=== PATIENT | female | born 1940 | race Two or more races ===

== ENCOUNTER 2023-03-14 22:00 | Observation (INO) | payer OTHER, MEDICAID ==
[~2023-03-14] VITALS: Ht 152.4 cm; Wt 74.0 kg
[~2023-03-14 22:00] MED LIST: ACET-1079; ALPR0.5T; CITA-77; LEVO25CA2; NIFE90TA25; ROPI2TAB31; SIMV-270; TRIA1CAP5
[2023-03-14 22:41] LABS: Basophils # (auto) 0 10 ^3/uL (0-0.2); Basophils % (auto) 0.5 % (0.0-2.0); Eosinophils # (auto) 0.2 10 ^3/uL (0-0.8); Eosinophils % (auto) 2.1 % (0.0-7.0); Hematocrit 40.6 % (36.0-46.0); Hemoglobin 13.2 g/dL (12.2-16.2); Lymphocytes % (auto) 11.9 % (10.0-50.0); Mean Corpuscular Hemoglobin 30.3 pg (28.0-32.0); Mean Corpuscular Hgb Conc. 32.6 g/dL (32.0-36.0); Monocytes # (auto) 0.9 10 ^3/uL (0-1.3); Monocytes % (auto) 10.2 % (0.0-12.0); Neutrophils # (auto) 6.4 10 ^3/uL (1.6-8.6); Neutrophils % (auto) 75.3 % (37.0-80.0); Red Blood Cells 4.37 10^6/uL (4.0-5.20); Red Cell Distribution Width 13.6 % (11.8-14.3); White Blood Cell 8.5 10^3/uL (4.4-10.8)
[2023-03-14 22:58] LABS: INR 0.99 (0.9-1.15); Partial Thromboplastin Time 34.6 SEC (24.5-34.5); Prothrombin Time 10.4 sec (9.3-11.8)
[2023-03-14 22:59] LABS: Alanine Aminotransferase 15 U/L (7-40); Albumin 4.5 g/dL (3.2-4.8); Alkaline Phosphatase 92 U/L (46-116); Anion Gap 11 (5-15); Aspartate Aminotransferase 13 U/L (13-40); BUN/Creatinine Ratio 14.8 (10.0-20.0); Bilirubin, Total 0.2 mg/dL (0.2-1.0); Blood Urea Nitrogen 9 mg/dL (9-23); Calcium 9.5 mg/dL (8.5-10.1); Carbon Dioxide 22 mmol/L (20-30); Chloride 103 mmol/L (98-107); Glucose 126 mg/dL (74-106); Potassium 3.9 mmol/L (3.5-5.1); Sodium 136 mmol/L (136-145); Total Protein 6.7 g/dL (5.7-8.2)
[2023-03-14] MEDS ORDERED: ALBUTEROL SULF 2.5 MG/0.5ML(0.5%) NEB SOLN NEB ONE (23:45)
[2023-03-14] MEDS ORDERED: IPRATROPIUM BROM 0.5 MG/2.5ML INH SOL NEB ONE (23:45)
[2023-03-14] MEDS ORDERED: methylPREDNISolone SOD SUCC 125 MG/2 ML VL IV ONE (23:45)
[2023-03-15] VITALS (9 sets, daily range): BP systolic 116–136; BP diastolic 70–85; PULSE 80–148; RESP 16–22; TEMP 98–98.3; O2SAT 93–99
[2023-03-15] MEDS ORDERED: ALBUTEROL SULF 2.5 MG/0.5ML(0.5%) NEB SOLN NEB PRN (07:30)
[2023-03-15] MEDS ORDERED: ONDANSETRON HCL 4 MG/2 ML VIAL IV PRN (07:30)
[2023-03-15] MEDS ORDERED: ACETAMINOPHEN 325 MG TAB PO PRN (07:30)
[2023-03-15] MEDS ORDERED: NITROGLYCERIN 0.4 MG SL TAB SL PRN (08:15)
[2023-03-15] MEDS ORDERED: MORPHINE SULFATE INJ 2 MG/ml SYRG IV PRN (08:15)
[2023-03-15] MEDS: IPRATROPIUM BROM 0.5 MG/2.5ML INH SOL NEB PRN (08:18)
[2023-03-15] MEDS ORDERED: DIGO0.12 PO (08:30)
[2023-03-15] MEDS ORDERED: DILT-14 PO (08:30)
[2023-03-15] MEDS ORDERED: LEVALBUTEROL HCL 1.25 MG/3 ML NEB ONE (08:33)
[2023-03-15] MEDS: LEVOTHYROXINE SODIUM 50 MCG TAB PO SCH (09:48)
[2023-03-15] MEDS: DIGOXIN 0.125 MG TAB PO SCH (09:59)
[2023-03-15] MEDS: dilTIAZem 120MG ER CAP PO SCH (09:59)
[2023-03-15] MEDS: APIXABAN 2.5 MG TAB PO SCH ×2 (09:59→21:29)
[2023-03-15] MEDS ORDERED: DIGOXIN 0.125 MG TAB PO SCH (10:00)
[2023-03-15] MEDS ORDERED: dilTIAZem 120MG ER CAP PO SCH (10:00)
[2023-03-15] MEDS: methylPREDNISolone SOD SUCC 40 MG/ML VL IV SCH ×2 (10:00→21:28)
[2023-03-15] MEDS: SPIRONOLACTONE 25 MG TAB PO SCH (10:00)
[2023-03-15] MEDS: LEVALBUTEROL HCL 1.25 MG/3 ML NEB NEB PRN (10:22)
[2023-03-15] MEDS: ATORVASTATIN 20 MG TAB PO SCH (21:29)
[2023-03-15] MEDS: MONTELUKAST SODIUM 10 MG TAB PO SCH (21:29)
[2023-03-15] MEDS ORDERED: ATORVASTATIN 20 MG TAB PO SCH (22:00)
[2023-03-16] VITALS (11 sets, daily range): BP systolic 112–137; BP diastolic 61–79; PULSE 80–99; RESP 14–22; TEMP 97.4–98.3; O2SAT 91–98
[2023-03-16 05:08] LABS: Basophils # (auto) 0 10 ^3/uL (0-0.2); Basophils % (auto) 0.1 % (0.0-2.0); Eosinophils # (auto) 0 10 ^3/uL (0-0.8); Hematocrit 40.7 % (36.0-46.0); Hemoglobin 13.2 g/dL (12.2-16.2); Lymphocytes # (auto) 0.6 10 ^3/uL (0.4-5.4); Lymphocytes % (auto) 6.6 % (10.0-50.0); Mean Corpuscular Hemoglobin 30.6 pg (28.0-32.0); Mean Corpuscular Hgb Conc. 32.5 g/dL (32.0-36.0); Mean Corpuscular Volume 94.3 fL (80.0-100.0); Monocytes # (auto) 0.3 10 ^3/uL (0-1.3); Monocytes % (auto) 3.7 % (0.0-12.0); Neutrophils # (auto) 8.3 10 ^3/uL (1.6-8.6); Neutrophils % (auto) 89.6 % (37.0-80.0); Nucleated Red Blood Cells % 0.1 %; Red Blood Cells 4.31 10^6/uL (4.0-5.20); Red Cell Distribution Width 13.6 % (11.8-14.3); White Blood Cell 9.2 10^3/uL (4.4-10.8)
[2023-03-16 05:24] LABS: Alanine Aminotransferase 16 U/L (7-40); Albumin 4.1 g/dL (3.2-4.8); Alkaline Phosphatase 73 U/L (46-116); Anion Gap 9 (5-15); Aspartate Aminotransferase 13 U/L (13-40); BUN/Creatinine Ratio 43.1 (10.0-20.0); Blood Urea Nitrogen 22 mg/dL (9-23); Calcium 9.2 mg/dL (8.7-10.4); Carbon Dioxide 24 mmol/L (20-30); Chloride 106 mmol/L (98-107); Glucose 143 mg/dL (74-106); Potassium 4.1 mmol/L (3.5-5.1); Sodium 139 mmol/L (136-145)
[2023-03-16 05:25] LABS: Bilirubin, Total 0.2 mg/dL (0.2-1.0); Total Protein 5.8 g/dL (5.7-8.2)
[2023-03-16] MEDS: LEVOTHYROXINE SODIUM 50 MCG TAB PO SCH (06:15)
[2023-03-16] MEDS: methylPREDNISolone SOD SUCC 40 MG/ML VL IV SCH ×2 (10:45→21:22)
[2023-03-16] MEDS: SPIRONOLACTONE 25 MG TAB PO SCH (10:45)
[2023-03-16] MEDS: dilTIAZem 120MG ER CAP PO SCH (10:46)
[2023-03-16] MEDS: DIGOXIN 0.125 MG TAB PO SCH (10:46)
[2023-03-16] MEDS: APIXABAN 2.5 MG TAB PO SCH ×2 (10:46→21:23)
[2023-03-16] MEDS ORDERED: AZITHROMYCIN 250 MG TAB PO ONE (12:00)
[2023-03-16] MEDS ORDERED: FUROSEMIDE 20 MG/2 ML VIAL IV ONE (12:00)
[2023-03-16] MEDS ORDERED: DOXYCYCLINE 100 MG TAB/CAP PO ONE (12:00)
[2023-03-16] MEDS: IPRATROPIUM BROM 0.5 MG/2.5ML INH SOL NEB PRN (15:52)
[2023-03-16] MEDS ORDERED: PANTOPRAZOLE 40 MG TAB PO ONE (16:45)
[2023-03-16 20:26] LABS: Urine Bacteria FEW /hpf (None Seen); Urine Blood Negative /uL (Negative); Urine Clarity Clear (Clear); Urine Color Colorless (Yellow); Urine Protein, UAD Negative (Negative); Urine Specific Gravity 1.007 (1.001-1.035); Urine Urobilinogen Normal (Negative); Urine WBC <1 /hpf (0 - 5); Urine pH 6.5 (5.0-8.0)
[2023-03-16] MEDS: ATORVASTATIN 20 MG TAB PO SCH (21:23)
[2023-03-16] MEDS: MONTELUKAST SODIUM 10 MG TAB PO SCH (21:23)
[2023-03-16] MEDS: DOXYCYCLINE 100 MG TAB/CAP PO SCH (21:24)
[2023-03-17] VITALS (8 sets, daily range): BP systolic 116–120; BP diastolic 66–75; PULSE 85–106; RESP 16–22; TEMP 98.2–98.4; O2SAT 93–98
[2023-03-17] MEDS: methylPREDNISolone SOD SUCC 40 MG/ML VL IV SCH ×2 (05:36→13:56)
[2023-03-17] MEDS: LEVOTHYROXINE SODIUM 50 MCG TAB PO SCH (06:00)
[2023-03-17] MEDS: LEVALBUTEROL HCL 1.25 MG/3 ML NEB NEB PRN (08:56)
[2023-03-17] MEDS: IPRATROPIUM BROM 0.5 MG/2.5ML INH SOL NEB PRN (08:56)
[2023-03-17] MEDS: SPIRONOLACTONE 25 MG TAB PO SCH (09:32)
[2023-03-17] MEDS: dilTIAZem 120MG ER CAP PO SCH (09:32)
[2023-03-17] MEDS: APIXABAN 2.5 MG TAB PO SCH (09:32)
[2023-03-17] MEDS: DOXYCYCLINE 100 MG TAB/CAP PO SCH (09:32)
[2023-03-17] MEDS: DIGOXIN 0.125 MG TAB PO SCH (09:32)
[2023-03-17] MEDS ORDERED: AZITHROMYCIN 250 MG TAB PO SCH (10:00)
[2023-03-17] MEDS ORDERED: PANTOPRAZOLE 40 MG TAB PO SCH (10:00)
[2023-03-17] MEDS ORDERED: METO-281 PO (10:37)
[2023-03-17] MEDS ORDERED: LEVO175C2 PO (15:22)
[2023-03-17] MEDS ORDERED: DOX100T PO (15:22)
[2023-03-17] MEDS ORDERED: LEVA1.2518 NEB (15:22)
[2023-03-17] MEDS ORDERED: IPR002IS NEB (15:22)
[2023-03-17] MEDS ORDERED: PRED20TA2 PO (15:23)
== END 2023-03-17 16:40 | disposition home or self-care (01) ==
LOC: EDUNIT# 22:00 → ER 22:00 → EDBD 22:00 → TELE 03-15 08:06 → TELE-WESTW 03-15 16:12
PROVIDERS: ADMIT Nurse Practitioner Acute Care; ATTEND Internal Medicine
DX: J96.21 Acute and chronic respiratory failure with hypoxia (principal); J44.1 Chronic obstructive pulmonary disease with (acute) exacerbation; I11.0 Hypertensive heart disease with heart failure; I50.32 Chronic diastolic (congestive) heart failure; I48.91 Unspecified atrial fibrillation; E03.9 Hypothyroidism, unspecified; R60.0 Localized edema; I25.10 Atherosclerotic heart disease of native coronary artery without angina pectoris; I08.0 Rheumatic disorders of both mitral and aortic valves; F32.A Depression, unspecified; E78.5 Hyperlipidemia, unspecified; Z95.1 Presence of aortocoronary bypass graft; Z88.1 Allergy status to other antibiotic agents; Z88.0 Allergy status to penicillin; Z88.5 Allergy status to narcotic agent
CPT/HCPCS: 36415; 71045; 71250; 80053; 80162; 81001; 83036; 83880; 84443; 84484; 85025; 85610; 85730; 93306; 94640; 96374; 96375; 96376; 99285; G0378; J1940; J2920; J7612; J7644; 93005

== ENCOUNTER → 2024-03-22 | Outpatient (CLI) | payer OTHER, MEDICAID ==
[~2024-03-22] MED LIST changes: +DIGO0.12 PO; +DILT-14 PO; +DOX100T PO; +IPR002IS NEB; +LEVA1.2518 NEB; +LEVO175C2 PO; +METO-281 PO; +PRED20TA2 PO
[2024-03-22 12:26] LABS: Base Excess -2.2 mmol/L (-2.0-3.0)
== END | disposition home or self-care (01) ==
LOC: RT 11:10
PROVIDERS: ATTEND Internal Medicine
DX: J96.11 Chronic respiratory failure with hypoxia (principal); J44.9 Chronic obstructive pulmonary disease, unspecified; Z99.81 Dependence on supplemental oxygen
CPT/HCPCS: 36600; 82805

== ENCOUNTER 2024-03-26 15:06 | Inpatient (IN) | payer OTHER, MEDICAID ==
[~2024-03-26] VITALS: Ht 152.4 cm; Wt 67.9 kg
[2024-03-26 15:34] LABS: Urine Bacteria None Seen /hpf (None Seen)
--- NOTE | 2024-03-26 15:35 | ED.PDOC ---
HPI Comments 84 year old female ROSA presents to the ED with chief complaint of chest pain and shortness a breath. Patient reports that she has been experiencing chest pain since this morning. Patient relays that she had taken 2 doses of Nitroglycerine along with a breathing treatment with some relief in her pain noted. EMS states they provided the patient one dose of Nitroglycerine on route to the ED and her pain had went from a 4/10 to a 2/10. Patient has history of UT, COPD, and CABG. Patient denies any SOB, dizziness, headache, N/V, or numbness/weakness. Chief Complaint: Chest Pain Time Seen by MD: 15:31 Reviewed Notes: Nurses Notes, Program Dir Notes, Medications, Allergies Allergies: Coded Allergies: Codeine (Verified Allergy, Unknown, 03/15/23) Erythromycin (Verified Allergy, Unknown, 03/15/23) Penicillins (Verified Allergy, Unknown, 03/15/23) Home Meds Active Scripts Prednisone (Prednisone) 20 Mg Tab, 40 MG PO QAM for 5 Days, #10 MG Prov:RAHAT MOOER MD 03/17/23 Ipratropium [place] (Ipratropium [place]) 0.02 % Nayeli, 0.5 MG NEB Q6HPRN PRN for 30 Days, #90 ML Prov:RAHAT MOORE MD 03/17/23 Levothyroxine Sodium (Levothyroxine Sodium) 175 Mcg Cap, 175 MCG PO QAM for 30 Days, #30 CAP Prov:RAHAT MOORE MD 03/17/23 Doxycycline Monohydrate (Doxycycline Monohydrate) 100 Mg Tab, 100 MG PO Q12HR for 5 Days, #10 TAB Prov:RAHAT MOORE MD 03/17/23 Levalbuterol HCl (Levalbuterol HCl) 1.25 Mg/3 Ml Neb, 1.25 MG NEB Q6HR PRN for 30 Days, #30 INH Prov:RAHAT MOORE MD 03/17/23 Reported Medications Metoclopramide Hcl (Reglan) 10 Mg Tab, 10 MG PO BIDAC, TAB 03/17/23 Digoxin (Digoxin) 125 Mcg Tab, 1 TAB PO DAILY 03/15/23 Diltiazem HCl Coated Beads (Diltiazem HCl ER) 120 Mg Cap, 1 CAP PO 03/15/23 Acetaminophen (Tylenol) 325 Mg Tb 09/24/11 Alprazolam (Xanax) 0.5 Mg Tb 09/24/11 Ropinirole Hydrochloride (ROPINIROLE ER) 2 Mg Tab 09/24/11 Citalopram Hydrobromide (Citalopram Hydrobromide) 20 Mg Tab 09/24/11 Simvastatin (Zocor) 20 Mg Tab 09/24/11 Levothyroxine Sodium (Tirosint) 25 Mcg Cap 09/24/11 Triamterene (Dyrenium) 50 Mg Cap 09/24/11 Nifedipine (Adalat Cc) 90 Mg Tab 09/24/11 Information Source: Patient, Emergency Med Personnel Mode of Arrival: EMS Severity: Moderate Timing: Hours Duration: Since onset Prehospital treatment: Breathing Tx, NTG Location: Chest (L) Radiation: No Radiation Quality: Tightness Onset: At Rest Cardiac Risk Factors: Hyperlipidemia, HTN PE Risk Factors: None History of: Similar pain in past, UT Past Medical History PAST MEDICAL HISTORY: CAD, CHF, COPD, Depression, High Lipids, HTN, [place], Thyroid Surgical History: CABG 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 History Family History Family History: Reviewed,noncontributory to illness, Unknown Social History Smoker: Non-Smoker Alcohol: Denies ETOH Use Drugs: Denies Drug Use Lives In: Home Constitutional: denies: chills, diaphoresis, fatigue, fever, malaise, sweats, weakness, others EENTM: denies: blurred vision, double vision, ear bleeding, ear discharge, ear drainage, ear pain, ear ringing, eye pain, eye redness, hearing loss, mouth pain, mouth swelling, nasal discharge, nose bleeding, nose congestion, nose pain, photophobia, tearing, throat pain, throat swelling, voice changes, others Respiratory: reports: shortness of breath; denies: cough, hemoptysis, orthopnea, SOB at rest, SOB with excertion, stridor, wheezing, others Cardiovascular: reports: chest pain; denies: dizzy spells, diaphoresis, Dyspnea on exertion, edema, irregular heart beat, left arm pain, lightheadedness, palpitations, PND, syncope, others Gastrointestinal: denies: abdomen distended, abdominal pain, blood streaked bowels, constipated, diarrhea, dysphagia, difficulty swallowing, hematemesis, melena, nausea, poor appetite, poor fluid intake, rectal bleeding, rectal pain, vomiting, others Genitourinary: denies: abnormal vagina bleeding, burning, dyspareunia, dysuria, flank pain, frequency, hematuria, incontinence, pain, , vagina discharge, urgency, others Neurological: denies: dizziness, fainting, headache, left sided numbness, left sided weakness, numbness, paresthesia, pre-existing deficit, right sided numbness, right sided weakness, seizure, speech problems, tingling, tremors, weakness, others Musculoskeletal: denies: back pain, gout, joint pain, joint swelling, muscle pain, muscle stiffness, neck pain, others Integumetry: denies: bruises, change in color, change in hair/nails, dryness, laceration, lesions, lumps, rash, wounds, others Allergic/Immunocompromised: denies: Difficulty Healing, Frequent Infections, Hives, Itching, others Hematologic/Lymphatic: denies: anemia, blood clots, easy bleeding, easy bruising, swollen glands, others Endocrine: denies: excessive hunger, excessive sweating, excessive thirst, excessive urination, flushing, intolerance to cold, intolerance to heat, unexplained weight gain, unexplained weight loss, others Psychiatric: denies: anxiety, bipolar disorder, depression, hopeless, panic disorder, schizophrenia, sleepless, suicidal, others All Other Systems: Reviewed and Negative Physical Exam General Appearance: Moderate Distress ([id number] distress due to chest pain concerns. Patient states her chest pain had improved in route status post EMS nitroglycerin dispensing.), Normal HEENT: Normal ENT Inspection, Pharynx Normal, TMs Normal Neck: Full Range of Motion, Non-Tender, Normal, Normal Inspection Respiratory: Chest Non-Tender, Lungs Clear, No Accessory Muscle Use, No Respiratory Distress, Normal Breath Sounds Cardiovascular: No Edema, No JVD, No Murmur, No Gallop, Normal Peripheral Pulses, Tachycardia Breast Exam: Deferred Gastrointestinal: No Organomegaly, Non Tender, No Pulsatile Mass, Normal Bowel Sounds, Soft Genitalia: Deferred Pelvic: Deferred Rectal: Deferred Extremities: No calf tenderness, Normal capillary refill, Non-tender, No pedal edema Neurologic: Alert, Normal Affect, Normal Mood, No Sensory Deficits Cerebellar Function: NOT DONE Reflexes: NOT DONE Skin: Dry, Normal Color, Warm Lymphatic: No Adenopathy Was a procedure done? Was a procedure done?: No CP Differential Dx Differential Diagnosis: A-fib, A-Flutter, Anxiety / Panic Attack, Atrial Dysrhythmia, AV Block 1st Degree, AV Block 2nd Degree, Heart Failure, UT, Pulmonary Embolus Differential Diagnosis: CHF Differential Diagnosis: Angina X-Ray, Labs, Meds, VS Vital Signs Date Time Temp Pulse Resp B/P (MAP) Pulse Ox O2 Delivery O2 Flow Rate FiO2 03/26/24 18:28 18 97 Simple Mask* 6 50 03/26/24 17:15 101 23 97 Simple Mask* 6 50 03/26/24 17:15 97.9 101 23 121/73 (89) 97 97.9 03/26/24 16:59 113 117/76 03/26/24 16:26 114 03/26/24 15:28 98.3 120 20 122/66 (84) 92 03/26/24 15:17 117 03/26/24 15:11 121 Lab Test 03/26/24 16:34 03/26/24 15:24 03/26/24 00:00 Range/Units Lactic Acid Level 0.8 0.4-2.0 mmol/L Magnesium Level 1.8 1.6-2.6 mg/dL Troponin I High Sensitivity < 3 L 3 L </=34 ng/L White Blood Count 5.8 4.4-10.8 10^3/uL Red Blood Count 4.59 4.0-5.20 10^6/uL Hemoglobin 14.2 12.2-16.2 g/dL Hematocrit 42.5 36.0-46.0 % Mean Corpuscular Volume 92.5 80.0-100.0 fL Mean Corpuscular Hemoglobin 31.0 28.0-32.0 pg Mean Corpuscular Hemoglobin Concent 33.5 32.0-36.0 g/dL Red Cell Distribution Width 13.5 11.8-14.3 % Platelet Count 225 140-450 10^3/uL Mean Platelet Volume 7.1 6.9-10.8 fL Neutrophils (%) (Auto) 81.1 H 37.0-80.0 % Lymphocytes (%) (Auto) 6.5 L 10.0-50.0 % Monocytes (%) (Auto) 11.3 0.0-12.0 % Eosinophils (%) (Auto) 0.3 0.0-7.0 % Basophils (%) (Auto) 0.8 0.0-2.0 % Neutrophils # (Auto) 4.7 1.6-8.6 10 ^3/uL Lymphocytes # (Auto) 0.4 0.4-5.4 10 ^3/uL Monocytes # (Auto) 0.7 0-1.3 10 ^3/uL Eosinophils # (Auto) 0 0-0.8 10 ^3/uL Basophils # (Auto) 0 0-0.2 10 ^3/uL Nucleated Red Blood Cells 0.3 % Sodium Level 135 L 136-145 mmol/L Potassium Level 4.2 3.5-5.1 mmol/L Chloride Level 103 98-107 mmol/L Carbon Dioxide Level 24 20-31 mmol/L Anion Gap 8 5-15 Blood Urea Nitrogen 8 L 9-23 mg/dL Creatinine 0.81 0.550-1.02 mg/dL Glomerular Filtration Rate Calc 72 >90 mL/min BUN/Creatinine Ratio 9.9 L 10.0-20.0 Serum Glucose 109 H 74-106 mg/dL Calcium Level 10.5 H 8.7-10.4 mg/dL Total Bilirubin 0.3 0.2-1.0 mg/dL Aspartate Amino Transferase (AST) 16 13-40 U/L Alanine Aminotransferase (ALT) 16 7-40 U/L Alkaline Phosphatase 96 46-116 U/L B-Type Natriuretic Peptide 45.86 0-100 pg/mL Total Protein 7.0 5.7-8.2 g/dL Albumin 4.7 3.2-4.8 g/dL Lipase 41 12-53 U/L Urine Color Dark-yellow Yellow Urine Clarity Clear Clear Urine pH 6.0 5.0-9.0 Urine Specific [place] 1.019 1.001-1.035 Urine Protein Negative Negative Urine Ketones 1+ H Negative Urine Blood Negative Negative /uL Urine Nitrite Negative Negative Urine Bilirubin Negative Negative Urine Urobilinogen Normal Negative mg/dL Urine Leukocyte Esterase Negative Negative /uL Urine RBC 4 0 - 4 /hpf Urine WBC <1 0 - 5 /hpf Urine Squamous Epithelial Cells Few <5 /hpf Urine Bacteria None seen None Seen /hpf Urine Glucose Normal Normal mg/dL Current Medications Medications (Trade) Dose Ordered Sig/[place] Route Start Time Stop Time Status Last Admin Ipratropium [place] (Atrovent Medneb) 0.5 mg ONCE ONCE NEB 03/26/24 17:30 03/26/24 17:31 DC 03/26/24 18:28 Dexamethasone Sodium Phosphate (Decadron Injection) 10 mg ONCE ONCE IV 03/26/24 17:45 03/26/24 17:46 DC 03/26/24 18:19 Levalbuterol HCl (Xopenex Medneb) 0.625 mg ONCE ONCE NEB 03/26/24 18:30 03/26/24 18:31 DC 03/26/24 18:28 X-Ray, Labs, Meds, VS Comment All studies performed the ED today were reviewed by me personally. Patient's initial EKG revealed a sinus tachycardia with a rate of 117. Atrial premature complexes noted as well as an old anterolateral infarct. IN interval was 150 and QT intervals 343. Some unusual movement noted in V4 and AVR. Cardiology practitioner Zoya was available and I reviewed EKG studies with her. We both agreed the patient will be admitted and receive a cardiac consultation tomorrow. Serum laboratories were relatively unremarkable for any acute process. Chest x-ray was unremarkable for any consolidation or signs of pulmonary involvement. Time of 1ST Reevaluation: 18:51 Reevaluation 1ST: Improved Consultation: PCP, Cardiology Patient Education/Counseling: Diagnosis, Treatment Family Education/Counseling: Diagnosis, Treatment, No Family Present Departure 1 Departure Time of Disposition: 18:52 Impression: Primary Impression: Acute coronary syndrome Additional Impressions: Hypertensive urgency COPD exacerbation Disposition: ADMITTED INPATIENT Condition: Stable Discharged With: Self Critical Care Note Critical Care Time?: No Stability Stability form required: No Heart Score Heart Score: Heart Score Response (Comments) Value History Highly Suspicious 2 EKG Normal 0 Age >65 2 Risk Factors >3 or Hx ASHD 2 Troponin Normal limit 0 Total 6 I personally scribed for JUNIOR NICOLAS PAC ([email or web address]) on 03/26/24 at 15:35. Electronically submitted by Emory Lincoln ([email or web address]). JUNIOR NICOLAS PAC Mar 26, 2024 15:35
[2024-03-26 15:46] LABS: Basophils # (auto) 0 10 ^3/uL (0-0.2); Basophils % (auto) 0.8 % (0.0-2.0); Eosinophils # (auto) 0 10 ^3/uL (0-0.8); Eosinophils % (auto) 0.3 % (0.0-7.0); Hematocrit 42.5 % (36.0-46.0); Hemoglobin 14.2 g/dL (12.2-16.2); Lymphocytes # (auto) 0.4 10 ^3/uL (0.4-5.4); Lymphocytes % (auto) 6.5 % (10.0-50.0); Mean Corpuscular Hgb Conc. 33.5 g/dL (32.0-36.0); Mean Corpuscular Volume 92.5 fL (80.0-100.0); Monocytes # (auto) 0.7 10 ^3/uL (0-1.3); Monocytes % (auto) 11.3 % (0.0-12.0); Neutrophils # (auto) 4.7 10 ^3/uL (1.6-8.6); Neutrophils % (auto) 81.1 % (37.0-80.0); Nucleated Red Blood Cells % 0.3 %; Platelet Count (auto) 225 10^3/uL (140-450); Red Blood Cells 4.59 10^6/uL (4.0-5.20); Red Cell Distribution Width 13.5 % (11.8-14.3); White Blood Cell 5.8 10^3/uL (4.4-10.8)
--- NOTE | 2024-03-26 15:48 | DVH ---
CHEST RADIOGRAPH Indication: CP Technique: Single frontal view of the chest was obtained Comparison: CT chest 03/16/2023 FINDINGS: Lines and Tubes: None Lungs: No focal consolidation. Hyperinflation of the lungs. Eventration of the right hemidiaphragm. Linear densities of the bilateral lower lung zones and right mid lung zone. Midline sternotomy wires are noted. Pleura: No effusion. No pneumothorax. Cardiomediastinal contours: Unremarkable Bones: No acute osseous abnormality. IMPRESSION: Eventration of the right hemidiaphragm with bilateral lower lung zone and right mid lung zone linear atelectasis /scarring.
[2024-03-26 15:55] LABS: Urine Blood Negative /uL (Negative); Urine Clarity Clear (Clear); Urine Color Dark-Yellow (Yellow); Urine Protein, UAD Negative (Negative); Urine Specific Gravity 1.019 (1.001-1.035); Urine Squamous Epithelial Cell FEW /hpf (<5); Urine Urobilinogen Normal (Negative); Urine WBC <1 /hpf (0 - 5)
[2024-03-26 16:00] LABS: Alanine Aminotransferase 16 U/L (7-40); Albumin 4.7 g/dL (3.2-4.8); Alkaline Phosphatase 96 U/L (46-116); Anion Gap 8 (5-15); Aspartate Aminotransferase 16 U/L (13-40); BUN/Creatinine Ratio 9.9 (10.0-20.0); Carbon Dioxide 24 mmol/L (20-31); Chloride 103 mmol/L (98-107); Lipase 41 U/L (12-53); Potassium 4.2 mmol/L (3.5-5.1)
[2024-03-26 16:04] LABS: Bilirubin, Total 0.3 mg/dL (0.2-1.0); Blood Urea Nitrogen 8 mg/dL (9-23); Calcium 10.5 mg/dL (8.7-10.4); Glucose 109 mg/dL (74-106); Sodium 135 mmol/L (136-145)
[2024-03-26] MEDS: METOPROLOL TARTRATE 1MG/1ML-5ML VIAL IV ONE (16:59)
[2024-03-26 17:15] VITALS: PULSE 101; RESP 23; O2SAT 97
[2024-03-26] MEDS ORDERED: DexAMETHasone INJECTION 10 MG in D5W 5% 50 ML IV ONE (17:30)
[2024-03-26] MEDS ORDERED: ALBUTEROL SULF 2.5 MG/0.5ML(0.5%) NEB SOLN NEB ONE (17:30)
[2024-03-26] MEDS ORDERED: DexAMETHasone SOD PHOS 10MG/1ML VIAL INJ IV ONE (17:45)
[2024-03-26] MEDS: DexAMETHasone SOD PHOS 10MG/1ML VIAL INJ IV ONE (18:19)
[2024-03-26] MEDS: LEVALBUTEROL HCL 1.25 MG/3 ML NEB NEB ONE (18:28)
[2024-03-26] MEDS: IPRATROPIUM BROM 0.5 MG/2.5ML INH SOL NEB ONE (18:28)
[2024-03-26] MEDS: LEVALBUTEROL HCL 1.25 MG/3 ML NEB ONE (18:31)
--- NOTE | 2024-03-26 18:49 | ECG ---
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
--- NOTE | 2024-03-26 18:50 | ECG ---
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
--- NOTE | 2024-03-26 18:50 | ECG ---
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
[2024-03-26 19:35] VITALS: PULSE 106; RESP 18; O2SAT 97
[2024-03-26] MEDS ORDERED: DOCUSATE SOD 100 MG CAP PO PRN (20:45)
[2024-03-26] MEDS ORDERED: MORPHINE SULFATE INJ 2 MG/ml SYRG IV PRN (20:45)
[2024-03-26] MEDS ORDERED: NITROGLYCERIN 0.4 MG SL TAB SL PRN (20:45)
[2024-03-26] MEDS ORDERED: ONDANSETRON HCL 4 MG/2 ML VIAL IV PRN (20:45)
--- NOTE | 2024-03-26 20:55 | DVHHP2 ---
History of Present Illness Reason for Visit: COPD with acute exacerbation History of Present Illness The patient is a 84-year-old female with multiple past medical history including COPD, CHF, hypertension, [place], and hyperlipidemia who presented to [facility] ED with complaint of shortness of breaths. Patient reports symptoms progressively get worse with chest pain, increased work of breathing, getting worse that prompted this visit. Patient was seen and evaluated in the ED, laboratory data shows WBC 5.8, platelets 225, sodium 135, potassium 4.2, BUN 8, creatinine 0.81, GFR 72, glucose 109, calcium 10.5, BNP 45.56, troponin 3, blood pressure 121/73, heart rate 98, temperature 97.9 F, O2 saturation 97% on simple mask. Chest x-ray revealing eventration of the right hemidiaphragm with bilateral lower lung zone and right mid lung zone linear atelectasis/scarring. Please see medication orders section in the computer. On my assessment, patient denies chest pain, no headache, no dizziness, no diaphoresis, no diarrhea, no nausea, no vomiting, no fever, no chills. Patient was admitted for further evaluation and medical management. Past Medical History CAD, CHF, COPD, Depression, High Lipids, HTN, [place], Thyroid Past Surgical History CABG Family History Reviewed, noncontributory to the management of this case. Past Social History The patient lives at home, denies smoking, alcohol or illicit drugs abuse. Review of Systems Constitutional: Yes: Weakness; No: Fever, Chills, Sweats, Malaise, Other Eyes: No: Pain, Vision change, Conjunctivae inflammation, Eyelid inflammation, Other, Redness ENT: No: Ear pain, Ear discharge, Nose pain, Nose discharge, Nose congestion, Mouth pain, Mouth swelling, Throat pain, Throat swelling, Other Respiratory: Shortness of breath, SOB with excertion; No: Cough, Dry, Wheezing, Hemoptysis, Pleuritic Pain, Sputum, Wheezing, Other Cardiovascular: Chest Pain; No: Palpitations, Orthopnea, Paroxysmal Noc. Dyspnea, Edema, Lt Headedness, Other Gastrointestinal: No: Nausea, Vomiting, Abdominal Pain, Diarrhea, Constipation, Melena, Hematochezia, Other Genitourinary: No Dysuria, No Frequency, No Incontinence, No Hematuria, No Retention, No Other Musculoskeletal: No: other, neck pain, shoulder pain, arm pain, back pain, hand pain, leg pain, foot pain Skin: No: Rash, Lesions, Jaundice, Bruising, Other Neurological: No: Weakness, Numbness, Incoordination, Change in speech, Confusion, Seizures, Other Allergies: Coded Allergies: Azithromycin (Verified Allergy, Unknown, 03/26/24) Codeine (Verified Allergy, Unknown, 03/15/23) Erythromycin (Verified Allergy, Unknown, 03/15/23) Penicillins (Verified Allergy, Unknown, 03/15/23) Medications Current Medications Medications Dose Ordered Sig/[place] Route Start Time Stop Time Status Last Admin Dose Admin Aspirin 81 mg DAILY PO 03/27/24 10:00 UNV Levalbuterol HCl 0.625 mg Q6HR NEB 03/27/24 00:00 UNV Ipratropium [place] 0.5 mg Q4HPRN PRN NEB 03/26/24 20:45 UNV Atorvastatin Calcium 20 mg HS PO 03/26/24 22:00 UNV Digoxin 0.125 mg DAILY PO 03/27/24 10:00 UNV Famotidine 20 mg Q12HR IV 03/26/24 22:00 UNV Nitroglycerin 0.4 mg Q5MINP PRN SL 03/26/24 20:45 UNV Morphine Sulfate 2 mg Q30M PRN IV 03/26/24 20:45 UNV Exam Vital Signs Vital Signs Date Time Temp Pulse Resp B/P (MAP) Pulse Ox O2 Delivery O2 Flow Rate FiO2 03/26/24 20:00 98 03/26/24 18:28 18 97 Simple Mask* 6 50 03/26/24 17:15 97.9 121/73 (89) 97.9 General Appearance: Alert, Oriented X3, Cooperative, No acute distress HEENT: Atraumatic, PERRLA, EOMI, Mucous membr. moist/pink Respiratory: Normal air movement, Other (Diminished breath sounds) Cardiovascular: Regular rate, Normal S1, Normal S2, No murmurs Abdominal: Normal bowel sounds, Soft, No tenderness, No hepatospenomegaly, No masses Extremities: No clubbing, No cyanosis, No edema, Normal pulses, No tenderness/swelling Skin: No rashes, No breakdown, No significant lesion Neuro: Normal speech, Normal tone, Sensation intact, Cranial nerves 3-12 NL, Reflexes 2+, Other (Generalized weakness) Psych/Mental Status: Mental status NL, Mood NL Labs/Xrays Labs Test 03/26/24 16:34 03/26/24 15:24 03/26/24 00:00 Range/Units Lactic Acid Level 0.8 0.4-2.0 mmol/L Magnesium Level 1.8 1.6-2.6 mg/dL Troponin I High Sensitivity < 3 L </=34 ng/L White Blood Count 5.8 4.4-10.8 10^3/uL Red Blood Count 4.59 4.0-5.20 10^6/uL Hemoglobin 14.2 12.2-16.2 g/dL Hematocrit 42.5 36.0-46.0 % Mean Corpuscular Volume 92.5 80.0-100.0 fL Mean Corpuscular Hemoglobin 31.0 28.0-32.0 pg Mean Corpuscular Hemoglobin Concent 33.5 32.0-36.0 g/dL Red Cell Distribution Width 13.5 11.8-14.3 % Platelet Count 225 140-450 10^3/uL Mean Platelet Volume 7.1 6.9-10.8 fL Neutrophils (%) (Auto) 81.1 H 37.0-80.0 % Lymphocytes (%) (Auto) 6.5 L 10.0-50.0 % Monocytes (%) (Auto) 11.3 0.0-12.0 % Eosinophils (%) (Auto) 0.3 0.0-7.0 % Basophils (%) (Auto) 0.8 0.0-2.0 % Neutrophils # (Auto) 4.7 1.6-8.6 10 ^3/uL Lymphocytes # (Auto) 0.4 0.4-5.4 10 ^3/uL Monocytes # (Auto) 0.7 0-1.3 10 ^3/uL Eosinophils # (Auto) 0 0-0.8 10 ^3/uL Basophils # (Auto) 0 0-0.2 10 ^3/uL Nucleated Red Blood Cells 0.3 % Sodium Level 135 L 136-145 mmol/L Potassium Level 4.2 3.5-5.1 mmol/L Chloride Level 103 98-107 mmol/L Carbon Dioxide Level 24 20-31 mmol/L Anion Gap 8 5-15 Blood Urea Nitrogen 8 L 9-23 mg/dL Creatinine 0.81 0.550-1.02 mg/dL Glomerular Filtration Rate Calc 72 >90 mL/min BUN/Creatinine Ratio 9.9 L 10.0-20.0 Serum Glucose 109 H 74-106 mg/dL Calcium Level 10.5 H 8.7-10.4 mg/dL Total Bilirubin 0.3 0.2-1.0 mg/dL Aspartate Amino Transferase (AST) 16 13-40 U/L Alanine Aminotransferase (ALT) 16 7-40 U/L Alkaline Phosphatase 96 46-116 U/L B-Type Natriuretic Peptide 45.86 0-100 pg/mL Total Protein 7.0 5.7-8.2 g/dL Albumin 4.7 3.2-4.8 g/dL Lipase 41 12-53 U/L Urine Color Dark-yellow Yellow Urine Clarity Clear Clear Urine pH 6.0 5.0-9.0 Urine Specific [place] 1.019 1.001-1.035 Urine Protein Negative Negative Urine Ketones 1+ H Negative Urine Blood Negative Negative /uL Urine Nitrite Negative Negative Urine Bilirubin Negative Negative Urine Urobilinogen Normal Negative mg/dL Urine Leukocyte Esterase Negative Negative /uL Urine RBC 4 0 - 4 /hpf Urine WBC <1 0 - 5 /hpf Urine Squamous Epithelial Cells Few <5 /hpf Urine Bacteria None seen None Seen /hpf Urine Glucose Normal Normal mg/dL PATIENT: LIANE COLORADO ACCT: [id number] UNIT: [id number] : 1940 LOC: ER ROOM / BED: / AGE / SEX: 84 / F ADM STATUS: REG ER SERVICE 1515 ORDERING PHYSICIAN: JUNIOR NICOLAS PAC PROCEDURE(s): CXRP - CHEST PORTABLE REASON: CP ORDER NUMBER(s): [id number], ACCESSION NUMBER(s): [id number] CHEST RADIOGRAPH Indication: CP Technique: Single frontal view of the chest was obtained Comparison: CT chest 03/16/2023 FINDINGS: Lines and Tubes: None Lungs: No focal consolidation. Hyperinflation of the lungs. Eventration of the right hemidiaphragm. Linear densities of the bilateral lower lung zones and right mid lung zone. Midline sternotomy wires are noted. Pleura: No effusion. No pneumothorax. Cardiomediastinal contours: Unremarkable Bones: No acute osseous abnormality. IMPRESSION: Eventration of the right hemidiaphragm with bilateral lower lung zone and right mid lung zone linear atelectasis/scarring. Assessment/Plan Assessment/Plan Acute coronary syndrome Tachycardia COPD with acute exacerbation Generalized weakness Plan 1. Admit to telemetry unit 2. Breathing treatment 3. Pain control management 4. Management of fluids and electrolytes 5. Consultation for pulmonology 6. Diagnostic tests chest x-ray 7. DVT prophylaxis-on aspirin 8. Repeat labs CBC, CMP in a.m. 9. Continue with current medical management 10. Treatment plan discussed with patient and RN. Patient verbalized understanding. Plan discussed with: Patient, Other (RN) My Orders Orders - CONSTANTIN EASTON DNP Procedure Category Date Status Time Aspirin Tablet PHA 03/27/24 Logged 10:00 Levalbuterol Hcl PHA 03/27/24 Logged (Xopenex Medneb) 00:00 Ipratropium Medneb PHA 03/26/24 Logged (Atrovent Medneb) 20:45 Atorvastatin (Lipitor) PHA 03/26/24 Logged 22:00 Digoxin Tablet PHA 03/27/24 Transmitted (Lanoxin Tablet) 10:00 Famotidine Injection PHA 03/26/24 Transmitted (Pepcid Injection) 22:00 Methylprednisolone PHA 03/26/24 Transmitted Sod Succ (Solu Medrol 20:45 Methylprednisolone PHA 03/26/24 Transmitted Sod Succ (Solu Medrol 22:00 *Consult CONS 03/26/24 Transmitted / 20:41 Levothyroxine Tablet PHA 03/27/24 Transmitted (Synthroid Tablet) 06:00 Admit ADMIT 03/26/24 Transmitted 20:41 Allergies MADALYN 03/26/24 In Process 20:41 Code Status CODE 03/26/24 Transmitted 20:41 0.9% Ns 1000 Ml PHA 03/26/24 Transmitted 20:45 Oxygen Per Hour RT 03/26/24 Transmitted 20:41 Ondansetron Hcl PHA 03/26/24 Transmitted (Zofran) 20:45 Docusate Sodium PHA 03/26/24 Transmitted Capsule (Colace 20:45 Fall Risk Precautions MADALYN 03/26/[address] 20:41 Complete Blood Count LAB 03/27/24 Verified 04:00 Comprehensive LAB 03/27/24 Verified Metabolic Panel 04:00 Cardiac DIET 03/27/24 Transmitted Diet-2gna,Lofat,Lochol Breakfast Condition: Serious MADALYN 03/26/24 In Process 20:41 Acetaminophen Tablet PHA 03/26/24 Transmitted (Tylenol Tablet) 20:45 Sequential MADALYN 03/26/24 In Process Compression Device Nitroglycerin PHA 03/26/24 Transmitted Sublingual (Ntrostat 20:45 Morphine Sulfate PHA 03/26/24 Transmitted Injection 20:45 Notify Md Of Changes [facility] 03/26/24 In Process From Base 20:41 Full Stack Developer For [facility] 03/26/24 In Process 24 Hours 20:41 Emergency Dysrhythmia [facility] 03/26/24 In Process Protocol 20:41 Rhythm Strips Once [facility] 03/26/24 In Process Every Shift 20:41 Oxygen By Nasal RT 03/26/24 Transmitted Cannula 20:41 Problem List: (1) Acute coronary syndrome (2) Tachycardia (3) COPD with acute exacerbation (4) Generalized weakness Date of Service: Mar 26, 2024 Billing Provider: CONSTANTIN EASTON DNP Common Visit Codes: [id number] INP/OBS CARE (HIGH) CONSTANTIN EASTON DNP Mar 26, 2024 20:55
[2024-03-26 21:09] VITALS: BP 110/74; PULSE 106; RESP 18; TEMP 97.7; O2SAT 98
[2024-03-26] MEDS: methylPREDNISolone SOD SUCC 40 MG/ML VL IV SCH (22:00)
[2024-03-26] MEDS: ATORVASTATIN 20 MG TAB PO SCH (22:11)
[2024-03-26] MEDS: SODIUM CHLORIDE 0.9% 1,000 ML IV SCH (22:11)
[2024-03-26] MEDS: methylPREDNISolone SOD SUCC 125 MG/2 ML VL IV ONE (22:11)
--- NOTE | 2024-03-26 23:26 | DVHINCON2 ---
Date of service: Mar 26, 2024 Referring Physician Brigido Shah NP Reason for Consultation Acute hypoxic respiratory failure History of Present Illness An 84-year-old woman with multiple past medical history including COPD, CHF, hypertension, [place], and hyperlipidemia who presented to ED today with complaint of shortness of breath. Patient reports symptoms progressively got worse with chest pain, increased work of breathing, that prompted this visit. Workup in ED shows WBC 5.8, platelets 225, sodium 135, potassium 4.2, BUN 8, creatinine 0.81, GFR 72, glucose 109, calcium 10.5, BNP 45.56, troponin 3. Blood pressure 121/73, heart rate 98, temperature 97.9 F, O2 saturation 97% on simple mask. Chest x- ray revealing eventration of the right hemidiaphragm with bilateral lower lung zone and right mid lung zone linear atelectasis/scarring. Patient was admitted for further care and pulmonary consultation is requested for evaluation and management due to the above findings. Review of Systems: 14-point review of systems negative unless otherwise noted above. Past Medical History: COPD, CHF, hypertension, [place], hyperlipidemia, thyroid disease, depression Past Surgical History: CABG Medications: Reviewed. Allergies: Azithromycin Codeine Erythromycin Penicillins Family History: heart disease, cancer, hiatal hernia. Social History: Nonsmoker. No alcohol or illicit drug use. Family History: Cardiovascular disease G8 MOTHER, FHx: cancer 19 CHILD, 19 CHILD, Hiatal hernia G8 FATHER, Allergies: Coded Allergies: Azithromycin (Verified Allergy, Unknown, 03/26/24) Codeine (Verified Allergy, Unknown, 03/15/23) Erythromycin (Verified Allergy, Unknown, 03/15/23) Penicillins (Verified Allergy, Unknown, 03/15/23) Home Meds Active Scripts Prednisone (Prednisone) 20 Mg Tab, 40 MG PO QAM for 5 Days, #10 MG Prov:RAHAT MOORE MD 03/17/23 Ipratropium [place] (Ipratropium [place]) 0.02 % Nayeli, 0.5 MG NEB Q6HPRN PRN for 30 Days, #90 ML Prov:RAHAT MOORE MD 03/17/23 Levothyroxine Sodium (Levothyroxine Sodium) 175 Mcg Cap, 175 MCG PO QAM for 30 Days, #30 CAP Prov:RAHAT MOORE MD 03/17/23 Doxycycline Monohydrate (Doxycycline Monohydrate) 100 Mg Tab, 100 MG PO Q12HR for 5 Days, #10 TAB Prov:RAHAT MOORE MD 03/17/23 Levalbuterol HCl (Levalbuterol HCl) 1.25 Mg/3 Ml Neb, 1.25 MG NEB Q6HR PRN for 30 Days, #30 INH Prov:RAHAT MOORE MD 03/17/23 Reported Medications Metoclopramide Hcl (Reglan) 10 Mg Tab, 10 MG PO BIDAC, TAB 03/17/23 Digoxin (Digoxin) 125 Mcg Tab, 1 TAB PO DAILY 03/15/23 Diltiazem HCl Coated Beads (Diltiazem HCl ER) 120 Mg Cap, 1 CAP PO 03/15/23 Acetaminophen (Tylenol) 325 Mg Tb 09/24/11 Alprazolam (Xanax) 0.5 Mg Tb 09/24/11 Ropinirole Hydrochloride (ROPINIROLE ER) 2 Mg Tab 09/24/11 Citalopram Hydrobromide (Citalopram Hydrobromide) 20 Mg Tab 09/24/11 Simvastatin (Zocor) 20 Mg Tab 09/24/11 Levothyroxine Sodium (Tirosint) 25 Mcg Cap 09/24/11 Triamterene (Dyrenium) 50 Mg Cap 09/24/11 Nifedipine (Adalat Cc) 90 Mg Tab 09/24/11 Current Medications Current Medications Medications (Trade) Dose Ordered Sig/Grayson Route PRN Reason Start Time Stop Time Status Last Admin Aspirin 81 mg DAILY PO 03/27/24 10:00 Levalbuterol HCl (Xopenex Medneb) 0.625 mg Q6HR NEB 03/27/24 00:00 Ipratropium [place] (Atrovent Medneb) 0.5 mg Q4HPRN PRN NEB SHORTNESS OF BREATH 03/26/24 20:45 Atorvastatin Calcium (Lipitor) 20 mg HS PO 03/26/24 22:00 03/26/24 22:11 Digoxin (Lanoxin Tablet) 0.125 mg DAILY PO 03/27/24 10:00 Famotidine (Pepcid Injection) 20 mg DAILY IV 03/27/24 10:00 Methylprednisolone Sodium Succinate (Solu Medrol) 40 mg Q8HR IV 03/26/24 22:00 Levothyroxine Sodium (Synthroid Tablet) 25 mcg QAM@0600 PO 03/27/24 06:00 Sodium Chloride 1,000 ml @ 60 mls/hr [id number] IV 03/26/24 20:45 03/26/24 22:11 Ondansetron HCl (Zofran) 4 mg Q4HP PRN IV NAUSEA / VOMITING 03/26/24 20:45 Docusate Sodium (Colace Capsule) 100 mg BIDPRN PRN PO FOR CONSTIPATION 03/26/24 20:45 Acetaminophen (Tylenol Tablet) 650 mg Q6HP PRN PO PAIN SCALE 1-3 OR TEMP>100.4 03/26/24 20:45 Nitroglycerin (Ntrostat Sublingual) 0.4 mg Q5MINP PRN SL FOR CHEST PAIN 03/26/24 20:45 Morphine Sulfate 2 mg Q30M PRN IV FOR CHEST PAIN 03/26/24 20:45 Vital Signs Vital Signs Date Time Temp Pulse Resp B/P (MAP) Pulse Ox O2 Delivery O2 Flow Rate FiO2 03/26/24 23:00 89 15 107/50 (69) 95 03/26/24 21:09 97.7 6.0 44 97.7 03/26/24 19:35 Simple Mask* Physical Exam Gen.: Patient lying in bed in no apparent distress. On supplemental oxygen. Head: Normocephalic, atraumatic. Eyes: EOMI/PERRLA. Ears: Normal hearing. Normal anatomy. Neck/trachea: Trachea midline, supple. Nose: Normal external anatomy. Mouth: Moist mucous membranes. Chest: Decreased air entry bilaterally. No wheezing or rhonchi. Cardiovascular: Positive S1, positive S2. Regular rate and rhythm. Abdomen: Positive bowel sounds in all 4 quadrants. Soft, non-tender, non- distended. : Deferred. Rectal: Deferred. Skin: Warm, dry. Intact. Extremities: 2+ radial pulses bilaterally. No lower extremity edema. Neuro: Awake, alert, oriented x3. No gross motor or sensory deficits. Cranial nerves II through XII intact. Gait not assessed. Labs/Diagnostic Data Labs Test 03/26/24 16:34 03/26/24 15:24 03/26/24 00:00 Range/Units Lactic Acid Level 0.8 0.4-2.0 mmol/L Magnesium Level 1.8 1.6-2.6 mg/dL Troponin I High Sensitivity < 3 L </=34 ng/L White Blood Count 5.8 4.4-10.8 10^3/uL Red Blood Count 4.59 4.0-5.20 10^6/uL Hemoglobin 14.2 12.2-16.2 g/dL Hematocrit 42.5 36.0-46.0 % Mean Corpuscular Volume 92.5 80.0-100.0 fL Mean Corpuscular Hemoglobin 31.0 28.0-32.0 pg Mean Corpuscular Hemoglobin Concent 33.5 32.0-36.0 g/dL Red Cell Distribution Width 13.5 11.8-14.3 % Platelet Count 225 140-450 10^3/uL Mean Platelet Volume 7.1 6.9-10.8 fL Neutrophils (%) (Auto) 81.1 H 37.0-80.0 % Lymphocytes (%) (Auto) 6.5 L 10.0-50.0 % Monocytes (%) (Auto) 11.3 0.0-12.0 % Eosinophils (%) (Auto) 0.3 0.0-7.0 % Basophils (%) (Auto) 0.8 0.0-2.0 % Neutrophils # (Auto) 4.7 1.6-8.6 10 ^3/uL Lymphocytes # (Auto) 0.4 0.4-5.4 10 ^3/uL Monocytes # (Auto) 0.7 0-1.3 10 ^3/uL Eosinophils # (Auto) 0 0-0.8 10 ^3/uL Basophils # (Auto) 0 0-0.2 10 ^3/uL Nucleated Red Blood Cells 0.3 % Sodium Level 135 L 136-145 mmol/L Potassium Level 4.2 3.5-5.1 mmol/L Chloride Level 103 98-107 mmol/L Carbon Dioxide Level 24 20-31 mmol/L Anion Gap 8 5-15 Blood Urea Nitrogen 8 L 9-23 mg/dL Creatinine 0.81 0.550-1.02 mg/dL Glomerular Filtration Rate Calc 72 >90 mL/min BUN/Creatinine Ratio 9.9 L 10.0-20.0 Serum Glucose 109 H 74-106 mg/dL Calcium Level 10.5 H 8.7-10.4 mg/dL Total Bilirubin 0.3 0.2-1.0 mg/dL Aspartate Amino Transferase (AST) 16 13-40 U/L Alanine Aminotransferase (ALT) 16 7-40 U/L Alkaline Phosphatase 96 46-116 U/L B-Type Natriuretic Peptide 45.86 0-100 pg/mL Total Protein 7.0 5.7-8.2 g/dL Albumin 4.7 3.2-4.8 g/dL Lipase 41 12-53 U/L Urine Color Dark-yellow Yellow Urine Clarity Clear Clear Urine pH 6.0 5.0-9.0 Urine Specific [place] 1.019 1.001-1.035 Urine Protein Negative Negative Urine Ketones 1+ H Negative Urine Blood Negative Negative /uL Urine Nitrite Negative Negative Urine Bilirubin Negative Negative Urine Urobilinogen Normal Negative mg/dL Urine Leukocyte Esterase Negative Negative /uL Urine RBC 4 0 - 4 /hpf Urine WBC <1 0 - 5 /hpf Urine Squamous Epithelial Cells Few <5 /hpf Urine Bacteria None seen None Seen /hpf Urine Glucose Normal Normal mg/dL Assessment Impression: Acute hypoxic respiratory failure Dependence on supplemental oxygen Acute coronary syndrome Acute COPD exacerbation COPD Emphysema Generalized weakness Plan: Supplemental oxygen Titrate to keep O2 sats above 92%. Taper O2 as tolerated. Continue bronchodilators. IV steroids Monitor renal function. Monitor electrolytes. Supplement as necessary. Monitor ins and outs. DVT prophylaxis. Prognosis: Poor given patient's multiple co-morbidities. Rest of plan per hospitalist and other consultants. Thank you, DOMINIC Shah, for allowing me to participate in this patient's care. Further recommendations will depend on the patient's clinical course. Please do not hesitate to contact me if you have any questions or concerns. This medical document was created using an electronic medical record system with [employer] dictation system. Although these documentations are being carefully reviewed, there may still be some phonetic and typographical changes. The errors are purely typographical, due to imperfection on the software program, and do not reflect any compromise in the patient's medical care. Plan discussed with: Patient, Other (DOMINIC Shah/) PAT MAYFIELD MD Mar 26, 2024 23:26
[2024-03-27] VITALS (17 sets, daily range): BP systolic 103–137; BP diastolic 52–78; PULSE 83–109; RESP 14–20; TEMP 97.8–98.1; O2SAT 90–99
[2024-03-27] MEDS: LEVALBUTEROL HCL 1.25 MG/3 ML NEB NEB SCH (00:12)
[2024-03-27] MEDS: IPRATROPIUM BROM 0.5 MG/2.5ML INH SOL NEB PRN (00:12)
[2024-03-27] MEDS: LEVOTHYROXINE SODIUM 25 MCG TAB PO SCH (05:44)
[2024-03-27 06:44] LABS: Basophils # (auto) 0 10 ^3/uL (0-0.2); Basophils % (auto) 0.3 % (0.0-2.0); Eosinophils # (auto) 0 10 ^3/uL (0-0.8); Hematocrit 42.4 % (36.0-46.0); Hemoglobin 14.3 g/dL (12.2-16.2); Lymphocytes # (auto) 0.3 10 ^3/uL (0.4-5.4); Lymphocytes % (auto) 9.8 % (10.0-50.0); Mean Corpuscular Hemoglobin 31.3 pg (28.0-32.0); Mean Corpuscular Hgb Conc. 33.7 g/dL (32.0-36.0); Mean Corpuscular Volume 92.8 fL (80.0-100.0); Monocytes # (auto) 0.1 10 ^3/uL (0-1.3); Monocytes % (auto) 1.9 % (0.0-12.0); Neutrophils # (auto) 2.9 10 ^3/uL (1.6-8.6); Platelet Count (auto) 221 10^3/uL (140-450); Red Blood Cells 4.57 10^6/uL (4.0-5.20); Red Cell Distribution Width 13.5 % (11.8-14.3); White Blood Cell 3.3 10^3/uL (4.4-10.8)
[2024-03-27 07:03] LABS: Alanine Aminotransferase 20 U/L (7-40); Alkaline Phosphatase 92 U/L (46-116); Anion Gap 11 (5-15); BUN/Creatinine Ratio 11.6 (10.0-20.0); Carbon Dioxide 24 mmol/L (20-31); Chloride 103 mmol/L (98-107); Potassium 3.9 mmol/L (3.5-5.1); Sodium 138 mmol/L (136-145)
[2024-03-27 07:05] LABS: Albumin 4.6 g/dL (3.2-4.8); Aspartate Aminotransferase 17 U/L (13-40)
[2024-03-27 07:13] LABS: Bilirubin, Total 0.2 mg/dL (0.2-1.0); Blood Urea Nitrogen 8 mg/dL (9-23); Glucose 135 mg/dL (74-106)
[2024-03-27] MEDS: ACETAMINOPHEN 325 MG TAB PO PRN (07:15)
[2024-03-27 07:18] LABS: Total Protein 6.9 g/dL (5.7-8.2)
--- NOTE | 2024-03-27 09:55 | DVHPNRES ---
Progress Note Date Seen: Mar 27, 2024 Resident Creating Document: PAULETTE GRAHAM RESIDENT Has the PT tested + for MRSA If YES, has PT been informed?: No Medical Necessity Reason Pt with a Central, PICC or Fol: No Subjective Review of Systems Reviewed the documents with daughter at bedside. Patient is short of hearing Objective vital signs Vital Sign Date Time Temp Pulse Resp B/P (MAP) Pulse Ox O2 Delivery O2 Flow Rate FiO2 03/27/24 08:30 98.1 89 18 115/66 (82) 93 98.1 03/27/24 06:42 Nasal Cannula 4.0 03/27/24 06:42 36 Total Intake and Output 03/26/24 03/26/24 03/27/24 15:00 23:00 07:00 Intake Total 220 ml Balance 220 ml medications Current Medications Medications Dose Ordered Sig/Grayson Route Start Time Stop Time Status Last Admin Dose Admin Aspirin 81 mg DAILY PO 03/27/24 10:00 Levalbuterol HCl 0.625 mg Q6HR NEB 03/27/24 00:00 03/27/24 06:36 0.625 MG Ipratropium [place] 0.5 mg Q4HPRN PRN NEB 03/26/24 20:45 03/27/24 00:12 0.5 MG Atorvastatin Calcium 20 mg HS PO 03/26/24 22:00 03/26/24 22:11 20 MG Digoxin 0.125 mg DAILY PO 03/27/24 10:00 Famotidine 20 mg DAILY IV 03/27/24 10:00 Methylprednisolone Sodium Succinate 40 mg Q8HR IV 03/26/24 22:00 03/27/24 05:44 40 MG Levothyroxine Sodium 25 mcg QAM@0600 PO 03/27/24 06:00 03/27/24 05:44 25 MCG Sodium Chloride 1,000 ml @ 60 mls/hr [id number] IV 03/26/24 20:45 03/26/24 22:11 60 MLS/HR Ondansetron HCl 4 mg Q4HP PRN IV 03/26/24 20:45 Docusate Sodium 100 mg BIDPRN PRN PO 03/26/24 20:45 Acetaminophen 650 mg Q6HP PRN PO 03/26/24 20:45 03/27/24 07:15 650 MG Nitroglycerin 0.4 mg Q5MINP PRN SL 03/26/24 20:45 Morphine Sulfate 2 mg Q30M PRN IV 03/26/24 20:45 Examination: GENERAL:Normal, HEENT:Abnormal (Hard of hearing), NECK:Normal, LUNGS:Abnormal (Bilateral basal rales, right lower lobe egophony absence of bronchial breath sounds), CVS:Normal, ABDOMEN:Normal, MSK:Normal, SKIN:Normal, NEURO:Normal, :Normal laboratory and microbiology Laboratory Tests 03/27/24 05:49 Test 03/27/24 05:49 Range/Units Serum Glucose 135 H 74-106 mg/dL Labs and/or images reviewed: Labs reviewed by me, Image(s) reviewed by me Problem List/Assessment/Plan Problem List/Assessment/Plan Hospitalization summary/ Assessment: An 84-year-old female with a history of COPD, CHF, hypertension, [place], and hyperlipidemia presented to the ED with worsening shortness of breath, chest pain, and increased work of breathing. Lab results showed normal WBC, platelets, sodium, potassium, BUN, creatinine, GFR, glucose, and calcium, with elevated BNP and troponin. Her vitals were stable, and a chest x-ray revealed eventration of the right hemidiaphragm with bilateral lower lung zone and right mid lung zone linear atelectasis/scarring. She denied other symptoms and was admitted for further evaluation and management. Her past medical history includes CAD, depression, high lipids, thyroid issues, and a CABG surgery. She lives at home and denies smoking, alcohol, or drug use. Plan: # COPD exacerbation: Likely due to community-acquired pneumonia, check for COVID, influenza, continue antibiotics, breathing treatment and steroids. Look for input from pulmonology, patient needs outpatient pulmonology close follow up. 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 Patient is oxygen dependent baseline 3. 5 L. # HFpEF: congestive heart failure: BNP unremarkable, last echo 03/16/2023 60% LVEF grade 1 diastolic dysfunction # CAD with history of [place]: As needed nitroglycerin 0.4 sublingual # dyslipidemia: Atorvastatin 40 mg daily # community-acquired pneumonia: Right lower lobe community-acquired pneumonia, corresponding with physical exam antibiotics started with IV ceftriaxone and doxycycline # ruled out acute coronary syndrome: Unremarkable EKG, troponin, atypical chest pain subsided. Otherwise CXR unremarkable # acute on chronic hypoxic respiratory failure: Baseline 3.5 L round the clock, she is waiting for concentrated but otherwise she has portable oxygen with her # sepsis secondary to community-acquired pneumonia: SIRS response noted with WBC less than 4 predominant neutrophilia and lymphopenia, at [facility] tachycardia sustained more than 90 per minute heart rate. Sepsis dose fluid and treatment on. # mild aortic valve regurgitation # osteoarthritis: neuropathic pain patient takes 300 mg daily gabapentin and duloxetine 60 mg daily # anxiety disorder/depression: Patient takes clonazepam 0.5 mg as needed and Celexa 20 mg to continue # vitamin-D deficiency: 2000 units daily vitamin-D # history of AFib: On Eliquis 2.5 mg b.i.d. Multaq 400 mg b.i.d. with meals # GERD/gastric ulcer: On PPI daily sucralfate 1 g by mouth t.i.d. # known hypothyroidism: Levothyroxine 175 mcg daily # seasonal allergy: Montelukast 10 mg daily Diet: GI prophylaxis: protonix 40mg daily to continue DVT prophylaxis: Eliquis to continue as H&H stable. Bowel regimen: Docusate 100 mg cap daily Barriers to discharge: Medical diagnosis and management in progress. Patient lives with daughter, who has been living with the patient for past 6 years. PCP: Dr. Lr Specialist Relevant To Admission: Pulmonology, Dr. Li following, appreciate input. Previously patient needs to follow up with Dr. Cadena's group for cardiology. Patient care and plan discussed with Dr. Hernandez Disposition: Patient remains in telemetry. Code status: Full code, discussed over 37 minutes along with plans. Plan discussed with: Patient, Daughter, Other (Primary team.) Date of Service: Mar 27, 2024 Billing Provider: MAMADOU BRIGHT MD Common Visit Codes: [id number] INP/OBS CARE(HIGH) APULETTE GRAHAM RESIDENT Mar 27, 2024 09:55 MAMADOU BRIGHT MD Mar 29, 2024 21:15
[2024-03-27] MEDS: ASPirin 81 mg TAB PO SCH (10:01)
[2024-03-27] MEDS: FAMOTIDINE (10MG/ML) 2ML VL IV SCH (10:03)
[2024-03-27] MEDS: DIGOXIN 0.125 MG TAB PO SCH (10:03)
[2024-03-27] MEDS ORDERED: PIPERACILLIN-TAZOB 3.375GM 100 ML IV SCH (14:00)
[2024-03-27] MEDS: DOXYCYCLINE 100 MG TAB/CAP PO ONE (16:31)
[2024-03-27] MEDS: cefTRIAXone 1GM/50ML D5W 50 ML IV ONE (16:31)
--- NOTE | 2024-03-27 19:27 | DVHPN2 ---
Progress Note - Dictate Date Seen: Mar 27, 2024 Medical Necessity Reason Pt with a Central, PICC or Fol: No Subjective Patient seen and examined at bedside. Remains on supplemental oxygen Overnight events reviewed. vital signs Vital Sign Date Time Temp Pulse Resp B/P (MAP) Pulse Ox O2 Delivery O2 Flow Rate FiO2 03/27/24 18:36 95 18 96 03/27/24 18:30 Nasal Cannula 4.0 03/27/24 18:30 36 03/27/24 16:50 98.0 120/71 (87) 98.0 Total Intake and Output 03/26/24 03/26/24 03/27/24 15:00 23:00 07:00 Intake Total 220 ml Balance 220 ml medications Current Medications Medications Dose Ordered Sig/Grayson Route Start Time Stop Time Status Last Admin Dose Admin Aspirin 81 mg DAILY PO 03/27/24 10:00 03/27/24 10:01 81 MG Levalbuterol HCl 0.625 mg Q6HR NEB 03/27/24 00:00 03/27/24 18:30 0.625 MG Ipratropium [place] 0.5 mg Q4HPRN PRN NEB 03/26/24 20:45 03/27/24 00:12 0.5 MG Atorvastatin Calcium 20 mg HS PO 03/26/24 22:00 03/26/24 22:11 20 MG Digoxin 0.125 mg DAILY PO 03/27/24 10:00 03/27/24 10:03 0.125 MG Famotidine 20 mg DAILY IV 03/27/24 10:00 03/27/24 10:03 20 MG Methylprednisolone Sodium Succinate 40 mg Q8HR IV 03/26/24 22:00 03/27/24 15:25 40 MG Levothyroxine Sodium 25 mcg QAM@0600 PO 03/27/24 06:00 03/27/24 05:44 25 MCG Sodium Chloride 1,000 ml @ 60 mls/hr [id number] IV 03/26/24 20:45 03/27/24 15:23 60 MLS/HR Ondansetron HCl 4 mg Q4HP PRN IV 03/26/24 20:45 Docusate Sodium 100 mg BIDPRN PRN PO 03/26/24 20:45 Acetaminophen 650 mg Q6HP PRN PO 03/26/24 20:45 03/27/24 16:31 650 MG Nitroglycerin 0.4 mg Q5MINP PRN SL 03/26/24 20:45 Morphine Sulfate 2 mg Q30M PRN IV 03/26/24 20:45 Piperacillin Sod/ Tazobactam Sod 100 ml @ 25 mls/hr Q8HR IV 03/27/24 14:00 Hold Doxycycline Monohydrate 100 mg Q12HR PO 03/27/24 22:00 objective Gen.: Patient lying in bed in no apparent distress. On supplemental oxygen. Head: Normocephalic, atraumatic. Eyes: EOMI/PERRLA. Ears: Normal hearing. Normal anatomy. Neck/trachea: Trachea midline, supple. Nose: Normal external anatomy. Mouth: Moist mucous membranes. Chest: Decreased air entry bilaterally. Wheezing bilaterally, improving. No rhonchi. Cardiovascular: Positive S1, positive S2. Regular rate and rhythm. Abdomen: Positive bowel sounds in all 4 quadrants. Soft, non-tender, non- distended. : Deferred. Rectal: Deferred. Skin: Warm, dry. Intact. Extremities: 2+ radial pulses bilaterally. No lower extremity edema. Neuro: Awake, alert, oriented x3. No gross motor or sensory deficits. Cranial nerves II through XII intact. Gait not assessed. laboratory and microbiology Laboratory Tests 03/27/24 05:49 Test 03/27/24 05:49 Range/Units Serum Glucose 135 H 74-106 mg/dL Assessment/Plan Impression: Acute hypoxic respiratory failure Dependence on supplemental oxygen Acute coronary syndrome Acute COPD exacerbation COPD Emphysema Generalized weakness Events: Remains on supplemental oxygen, 4 LPM NC Taper O2 as tolerated Continue bronchodilators Continue IV steroids Continue antibiotics Incentive spirometry d/t atelectasis Wheezing bilaterally on auscultation, slowly improving. Labs and imaging reviewed. Rest of plan as noted below. Plan: Supplemental oxygen Titrate to keep O2 sats above 92%. Taper O2 as tolerated. Continue bronchodilators. IV steroids Monitor renal function. Monitor electrolytes. Supplement as necessary. Monitor ins and outs. DVT prophylaxis. Prognosis: Poor given patient's multiple co-morbidities. Rest of plan per hospitalist and other consultants. Thank you, DOMINIC Shah, for allowing me to participate in this patient's care. Further recommendations will depend on the patient's clinical course. Please do not hesitate to contact me if you have any questions or concerns. This medical document was created using an electronic medical record system with [employer] dictation system. Although these documentations are being carefully reviewed, there may still be some phonetic and typographical changes. The errors are purely typographical, due to imperfection on the software program, and do not reflect any compromise in the patient's medical care. Plan discussed with: Patient, Other (AFSHAN Ford) PAT MAYFIELD MD Mar 27, 2024 19:27
[2024-03-27] MEDS: DOXYCYCLINE 100 MG TAB/CAP PO SCH (21:26)
[2024-03-28] VITALS (18 sets, daily range): BP systolic 120–134; BP diastolic 63–74; PULSE 70–97; RESP 16–22; TEMP 97.7–98.5; O2SAT 78–99
[2024-03-28 05:42] LABS: COVID19 ANTIGEN SOFIA FIA NEGATIVE (NEGATIVE)
[2024-03-28 05:44] LABS: Rapid Influenza B Negative (Negative)
[2024-03-28 05:45] LABS: Rapid Influenza A Positive (Negative)
[2024-03-28 10:37] LABS: Alanine Aminotransferase 17 U/L (7-40); Albumin 3.9 g/dL (3.2-4.8); Alkaline Phosphatase 74 U/L (46-116); Anion Gap 8 (5-15); Aspartate Aminotransferase 17 U/L (13-40); BUN/Creatinine Ratio 21.7 (10.0-20.0); Blood Urea Nitrogen 13 mg/dL (9-23); Calcium 9.5 mg/dL (8.7-10.4); Carbon Dioxide 25 mmol/L (20-31); Chloride 104 mmol/L (98-107); Potassium 3.6 mmol/L (3.5-5.1); Sodium 137 mmol/L (136-145)
[2024-03-28 10:38] LABS: Bilirubin, Total < 0.2 mg/dL (0.2-1.0); Glucose 173 mg/dL (74-106); Total Protein 5.9 g/dL (5.7-8.2)
[2024-03-28 11:13] LABS: Basophils # (auto) 0 10 ^3/uL (0-0.2); Basophils % (auto) 0.4 % (0.0-2.0); Eosinophils # (auto) 0 10 ^3/uL (0-0.8); Hematocrit 39.7 % (36.0-46.0); Hemoglobin 13.1 g/dL (12.2-16.2); Lymphocytes # (auto) 0.4 10 ^3/uL (0.4-5.4); Lymphocytes % (auto) 5.5 % (10.0-50.0); Mean Corpuscular Hemoglobin 30.7 pg (28.0-32.0); Mean Corpuscular Volume 93.1 fL (80.0-100.0); Monocytes # (auto) 0.2 10 ^3/uL (0-1.3); Monocytes % (auto) 3.3 % (0.0-12.0); Neutrophils # (auto) 6.4 10 ^3/uL (1.6-8.6); Neutrophils % (auto) 90.8 % (37.0-80.0); Nucleated Red Blood Cells % 0.1 %; Platelet Count (auto) 235 10^3/uL (140-450); Red Blood Cells 4.27 10^6/uL (4.0-5.20); Red Cell Distribution Width 13.3 % (11.8-14.3)
[2024-03-28] MEDS ORDERED: DOCUSATE SOD 100 MG CAP PO SCH (12:00)
[2024-03-28] MEDS ORDERED: APIX2.5T PO (13:39)
[2024-03-28] MEDS ORDERED: CHOL20002 PO (13:39)
[2024-03-28] MEDS ORDERED: GABA-1250 PO (13:39)
[2024-03-28] MEDS ORDERED: DRON400T PO (13:40)
[2024-03-28] MEDS ORDERED: DULO1CAP6 PO (13:40)
[2024-03-28] MEDS ORDERED: SPIR50TA5 PO (13:40)
[2024-03-28] MEDS ORDERED: MONT-8 PO (13:40)
[2024-03-28] MEDS ORDERED: DOCU-265 PO (13:40)
[2024-03-28] MEDS ORDERED: ATOR40TA52 (13:40)
[2024-03-28] MEDS ORDERED: SUCR1TAB PO (13:40)
[2024-03-28] MEDS ORDERED: PANT40T PO (13:40)
[2024-03-28] MEDS ORDERED: ALPRAZolam 0.5 MG TAB PO PRN (14:00)
[2024-03-28] MEDS ORDERED: IPRATROPIUM BROM 0.5 MG/2.5ML INH SOL NEB PRN (14:00)
[2024-03-28] MEDS ORDERED: LEVALBUTEROL HCL 1.25 MG/3 ML NEB NEB PRN (14:00)
[2024-03-28] MEDS: OSELTAMIVIR 75 MG CAP PO ONE (14:15)
[2024-03-28] MEDS: SUCRALFATE 1 GM TAB PO SCH (14:16)
--- NOTE | 2024-03-28 16:28 | DVHPNRES ---
Progress Note Date Seen: Mar 28, 2024 Resident Creating Document: CHAYA PALAFOX BUD Has the PT tested + for MRSA If YES, has PT been informed?: No Medical Necessity Reason Pt with a Central, PICC or Fol: No Subjective Review of Systems An 84-year-old female with a history of COPD, CHF, hypertension, SC, and hyperlipidemia presented to the emergency department with worsening shortness of breath, chest pain, and increased work of breathing. Lab results showed normal WBC, platelets, sodium, potassium, BUN, creatinine, GFR, glucose, and calcium, with elevated BNP and troponin. Her vitals were stable, and a chest x-ray revealed eventration of the right hemidiaphragm with bilateral lower lung zone and right mid lung zone linear atelectasis/scarring. She denied other symptoms and was admitted for further evaluation and management. Her past medical history includes CAD, depression, high lipids, thyroid issues, and a CABG surgery. She lives at home and denies smoking, alcohol, or drug use. Today, patient seen and examined at the bedside. Patient is feeling better since admission, Shana complained of shortness of breaths. Patient reports: No new complaints, Feels better Changes from previous H/P or p: Changes Objective vital signs Vital Sign Date Time Temp Pulse Resp B/P (MAP) Pulse Ox O2 Delivery O2 Flow Rate FiO2 03/28/24 13:00 97.7 86 16 122/63 (82) 95 97.7 03/28/24 11:33 Nasal Cannula 4.0 03/28/24 11:33 36 Total Intake and Output 03/27/24 03/27/24 03/28/24 15:00 23:00 07:00 Intake Total 1400 ml 800 ml Balance 1400 ml 800 ml medications Current Medications Medications Dose Ordered Sig/Grayson Route Start Time Stop Time Status Last Admin Dose Admin Aspirin 81 mg DAILY PO 03/27/24 10:00 03/28/24 10:22 81 MG Levalbuterol HCl 0.625 mg Q6HR NEB 03/27/24 00:00 03/28/24 11:33 0.625 MG Ipratropium [place] 0.5 mg Q4HPRN PRN NEB 03/26/24 20:45 03/28/24 00:30 0.5 MG Atorvastatin Calcium 20 mg HS PO 03/26/24 22:00 03/27/24 21:26 20 MG Famotidine 20 mg DAILY IV 03/27/24 10:00 03/28/24 10:22 20 MG Methylprednisolone Sodium Succinate 40 mg Q8HR IV 03/26/24 22:00 03/28/24 14:15 40 MG Levothyroxine Sodium 25 mcg QAM@0600 PO 03/27/24 06:00 03/28/24 05:41 25 MCG Ondansetron HCl 4 mg Q4HP PRN IV 03/26/24 20:45 Acetaminophen 650 mg Q6HP PRN PO 03/26/24 20:45 03/28/24 07:13 650 MG Nitroglycerin 0.4 mg Q5MINP PRN SL 03/26/24 20:45 Morphine Sulfate 2 mg Q30M PRN IV 03/26/24 20:45 Doxycycline Monohydrate 100 mg Q12HR PO 03/27/24 22:00 03/28/24 10:21 100 MG Ceftriaxone Sodium 50 ml @ 100 mls/hr DAILY@09 IV 03/29/24 09:00 Oseltamivir Phosphate 30 mg Q12HR PO 03/28/24 22:00 04/02/24 21:59 Alprazolam 0.5 mg BID PRN PO 03/28/24 14:00 Apixaban 2.5 mg BID PO 03/28/24 22:00 Citalopram Hydrobromide 20 mg DAILY PO 03/29/24 10:00 Digoxin 0.125 mg DAILY PO 03/29/24 10:00 Docusate Sodium 100 mg DAILY PO 03/29/24 10:00 Gabapentin 300 mg DAILY PO 03/29/24 10:00 Levalbuterol HCl 1.25 mg Q6HR PRN NEB 03/28/24 14:00 Metoclopramide HCl 10 mg BIDAC PO 03/28/24 17:00 Montelukast Sodium 10 mg DAILY PO 03/29/24 10:00 Pantoprazole Sodium 40 mg DAILY PO 03/29/24 10:00 Sucralfate 1 gm TID PO 03/28/24 14:00 03/28/24 14:16 1 GM Cholecalciferol 2,000 unit DAILY PO 03/29/24 10:00 Dronedarone 400 mg BID PO 03/28/24 22:00 Spironolactone 50 mg DAILY PO 03/29/24 10:00 Examination General Appearance: Alert, Oriented X3, Cooperative, No acute distress HEENT: Atraumatic, PERRLA, EOMI, Mucous membrane moist/pink Respiratory: Bilateral rhonchi with decreased air entry Cardiovascular: Regular rate, Normal S1, Normal S2, No murmurs, no chest wall tenderness Abdominal: Normal bowel sounds, Soft, No tenderness, No hepatospenomegaly, No masses Extremities: No clubbing, No cyanosis, No edema, Normal pulses, No tenderness/swelling Skin: No rashes, No breakdown, No significant lesion Neuro: Normal gait, Normal speech, Strength at 5/5 X4 ext, Normal tone, Sensation intact, Cranial nerves 3-12 NL, Reflexes 2+ Psych/Mental Status: Mental status NL, Mood NL laboratory and microbiology Laboratory Tests 03/28/24 09:13 Test 03/28/24 09:13 Range/Units Serum Glucose 173 H 74-106 mg/dL Labs and/or images reviewed: Labs reviewed by me, Image(s) reviewed by me Problem List/Assessment/Plan Problem List/Assessment/Plan Acute on chronic hypoxic respiratory failure, likely due to COPD exacerbation/pneumonia /influenza type a Acute COPD exacerbation Acute pneumonitis Influenza type Pneumonia, likely due to Gram-positive Gram-negative bacteria/viral Sepsis, likely due to pneumonia Influenza type A positive Seasonal allergy Influenza type B and COVID-19 are negative Chest x-ray shows hyperinflated lung with right lower zone infiltration Check MRSA nares, blood/sputum/urine culture Continue empiric antibiotics including ceftriaxone and doxycycline Breathing treatment Chest percussion therapy Incentive spirometry Continue montelukast Injection methylprednisolone 40 mg daily Possible acute on chronic diastolic heart failure History of coronary artery disease Ruled out ACS Mild aortic valve regurgitation History of atrial fibrillation Eliquis 2.5 mg b.i.d. Continue aspirin, at Injection Lasix 10 mg Osteoarthritis/chronic pain Continue gabapentin Slight vitamin-D deficiency, repleted Hypothyroidism Continue levothyroxine GERD/gastric cancer Continue Protonix and sucralfate Anxiety/depression Clonazepam 0.5 mg p.r.n. Continue citalopram DIET: Cardiac diet DVT PROPHYLAXIS: Patient is on Eliquis GI PROPHYLAXIS:: Protonix BOWEL REGIMEN: Colace p.r.n. CODE STATUS: Goal of care discussed for more than 25 minutes, full code DISPOSITION: Telemetry Patient's status discussed with the patient. Case discussed with Dr. Hernandez Plan discussed with: Patient, Other (RN) My Orders My Orders Orders - CHAYA PALAFOX RESDIENT Procedure Category Date Status Time Ceftriaxone 1gm/50ml PHA 03/29/24 In Process D5w (Rocephin) 09:00 Pt Request For Service PT 03/28/24 Logged 12:55 Oseltamivir 30mg PHA 03/28/24 In Process Capsule (Tamiflu 30mg 22:00 Date of Service: Mar 28, 2024 Billing Provider: MAMADOU BRIGHT MD Common Visit Codes: [id number] INP/OBS CARE(HIGH) CHAYA PALAFOX RESDIENT Mar 28, 2024 16:28 MAMADOU BRIGHT MD Mar 29, 2024 21:33
[2024-03-28] MEDS: METOCLOPRAMIDE HCL 10 MG TAB PO SCH (17:58)
--- NOTE | 2024-03-28 19:39 | DVHPN2 ---
Progress Note - Dictate Date Seen: Mar 28, 2024 Has the PT tested + for MRSA If YES, has PT been informed?: No Medical Necessity Reason Pt with a Central, PICC or Fol: No Subjective Patient seen and examined at bedside. Remains on supplemental oxygen Overnight events reviewed. vital signs Vital Sign Date Time Temp Pulse Resp B/P (MAP) Pulse Ox O2 Delivery O2 Flow Rate FiO2 03/28/24 18:27 73 18 98 03/28/24 18:19 Nasal Cannula 4.0 03/28/24 18:19 36 03/28/24 13:00 97.7 122/63 (82) 97.7 Total Intake and Output 03/27/24 03/27/24 03/28/24 15:00 23:00 07:00 Intake Total 1400 ml 800 ml Balance 1400 ml 800 ml medications Current Medications Medications Dose Ordered Sig/[place] Route Start Time Stop Time Status Last Admin Dose Admin Aspirin 81 mg DAILY PO 03/27/24 10:00 03/28/24 10:22 81 MG Levalbuterol HCl 0.625 mg Q6HR NEB 03/27/24 00:00 03/28/24 18:19 0.625 MG Ipratropium [place] 0.5 mg Q4HPRN PRN NEB 03/26/24 20:45 03/28/24 18:18 0.5 MG Atorvastatin Calcium 20 mg HS PO 03/26/24 22:00 03/27/24 21:26 20 MG Famotidine 20 mg DAILY IV 03/27/24 10:00 03/28/24 10:22 20 MG Methylprednisolone Sodium Succinate 40 mg Q8HR IV 03/26/24 22:00 03/28/24 14:15 40 MG Levothyroxine Sodium 25 mcg QAM@0600 PO 03/27/24 06:00 03/28/24 05:41 25 MCG Ondansetron HCl 4 mg Q4HP PRN IV 03/26/24 20:45 Acetaminophen 650 mg Q6HP PRN PO 03/26/24 20:45 03/28/24 07:13 650 MG Nitroglycerin 0.4 mg Q5MINP PRN SL 03/26/24 20:45 Morphine Sulfate 2 mg Q30M PRN IV 03/26/24 20:45 Doxycycline Monohydrate 100 mg Q12HR PO 03/27/24 22:00 03/28/24 10:21 100 MG Ceftriaxone Sodium 50 ml @ 100 mls/hr DAILY@09 IV 03/29/24 09:00 Oseltamivir Phosphate 30 mg Q12HR PO 03/28/24 22:00 04/02/24 21:59 Alprazolam 0.5 mg BID PRN PO 03/28/24 14:00 Apixaban 2.5 mg BID PO 03/28/24 22:00 Citalopram Hydrobromide 20 mg DAILY PO 03/29/24 10:00 Digoxin 0.125 mg DAILY PO 03/29/24 10:00 Docusate Sodium 100 mg DAILY PO 03/29/24 10:00 Gabapentin 300 mg DAILY PO 03/29/24 10:00 Levalbuterol HCl 1.25 mg Q6HR PRN NEB 03/28/24 14:00 Metoclopramide HCl 10 mg BIDAC PO 03/28/24 17:00 03/28/24 17:58 10 MG Montelukast Sodium 10 mg DAILY PO 03/29/24 10:00 Pantoprazole Sodium 40 mg DAILY PO 03/29/24 10:00 Sucralfate 1 gm TID PO 03/28/24 14:00 03/28/24 14:16 1 GM Cholecalciferol 2,000 unit DAILY PO 03/29/24 10:00 Dronedarone 400 mg BID PO 03/28/24 22:00 Spironolactone 50 mg DAILY PO 03/29/24 10:00 objective Gen.: Patient lying in bed in no apparent distress. On supplemental oxygen. Head: Normocephalic, atraumatic. Eyes: EOMI/PERRLA. Ears: Normal hearing. Normal anatomy. Neck/trachea: Trachea midline, supple. Nose: Normal external anatomy. Mouth: Moist mucous membranes. Chest: Decreased air entry bilaterally. Wheezing bilaterally, improving. No rhonchi. Cardiovascular: Positive S1, positive S2. Regular rate and rhythm. Abdomen: Positive bowel sounds in all 4 quadrants. Soft, non-tender, non- distended. : Deferred. Rectal: Deferred. Skin: Warm, dry. Intact. Extremities: 2+ radial pulses bilaterally. No lower extremity edema. Neuro: Awake, alert, oriented x3. No gross motor or sensory deficits. Cranial nerves II through XII intact. Gait not assessed. laboratory and microbiology Laboratory Tests 03/28/24 09:13 Test 03/28/24 09:13 Range/Units Serum Glucose 173 H 74-106 mg/dL Assessment/Plan Impression: Acute hypoxic respiratory failure Dependence on supplemental oxygen Acute coronary syndrome Acute COPD exacerbation COPD Emphysema Generalized weakness Events: Remains on supplemental oxygen, 4 LPM NC Taper O2 as tolerated On Digoxin/[place]aq Continue bronchodilators Continue IV steroids Tamiflu course Montelukast Continue antibiotics Incentive spirometry Anxiolytic PRN anxiety Physical therapy. Labs and imaging reviewed. Rest of plan as noted below. Plan: Supplemental oxygen Titrate to keep O2 sats above 92%. Taper O2 as tolerated. Continue bronchodilators. IV steroids Monitor renal function. Monitor electrolytes. Supplement as necessary. Monitor ins and outs. DVT prophylaxis. Prognosis: Poor given patient's multiple co-morbidities. Rest of plan per hospitalist and other consultants. Thank you, DOMINIC Shah, for allowing me to participate in this patient's care. Further recommendations will depend on the patient's clinical course. Please do not hesitate to contact me if you have any questions or concerns. This medical document was created using an electronic medical record system with compropago dictation system. Although these documentations are being carefully reviewed, there may still be some phonetic and typographical changes. The errors are purely typographical, due to imperfection on the software program, and do not reflect any compromise in the patient's medical care. Plan discussed with: Patient, Other (AFSHAN Holman) PAT MAYFIELD MD Mar 28, 2024 19:39
[2024-03-28] MEDS: DRONEDARONE HCL 400 MG TAB PO SCH (22:00)
[2024-03-28] MEDS: OSELTAMIVIR 30 MG CAP PO SCH (22:54)
[2024-03-28] MEDS: APIXABAN 2.5 MG TAB PO SCH (22:55)
[2024-03-29] VITALS (15 sets, daily range): BP systolic 119–154; BP diastolic 59–91; PULSE 76–114; RESP 14–22; TEMP 97.5–98; O2SAT 77–98
[2024-03-29 07:24] LABS: Basophils # (auto) 0 10 ^3/uL (0-0.2); Basophils % (auto) 0.2 % (0.0-2.0); Eosinophils # (auto) 0 10 ^3/uL (0-0.8); Hematocrit 41.6 % (36.0-46.0); Hemoglobin 13.8 g/dL (12.2-16.2); Lymphocytes # (auto) 0.7 10 ^3/uL (0.4-5.4); Lymphocytes % (auto) 7.9 % (10.0-50.0); Mean Corpuscular Hemoglobin 30.9 pg (28.0-32.0); Mean Corpuscular Hgb Conc. 33.1 g/dL (32.0-36.0); Mean Corpuscular Volume 93.2 fL (80.0-100.0); Monocytes # (auto) 0.4 10 ^3/uL (0-1.3); Monocytes % (auto) 4.5 % (0.0-12.0); Neutrophils # (auto) 7.2 10 ^3/uL (1.6-8.6); Neutrophils % (auto) 87.4 % (37.0-80.0); Platelet Count (auto) 259 10^3/uL (140-450); Red Blood Cells 4.46 10^6/uL (4.0-5.20); Red Cell Distribution Width 13.5 % (11.8-14.3); White Blood Cell 8.3 10^3/uL (4.4-10.8)
[2024-03-29 07:44] LABS: Alanine Aminotransferase 19 U/L (7-40); Alkaline Phosphatase 76 U/L (46-116); Anion Gap 8 (5-15); Aspartate Aminotransferase 18 U/L (13-40); BUN/Creatinine Ratio 21.8 (10.0-20.0); Blood Urea Nitrogen 12 mg/dL (9-23); Calcium 9.4 mg/dL (8.7-10.4); Carbon Dioxide 28 mmol/L (20-31); Chloride 104 mmol/L (98-107); Potassium 3.9 mmol/L (3.5-5.1); Sodium 140 mmol/L (136-145)
[2024-03-29 07:45] LABS: Total Protein 6.2 g/dL (5.7-8.2)
[2024-03-29 07:46] LABS: Bilirubin, Total 0.2 mg/dL (0.2-1.0); Glucose 113 mg/dL (74-106)
[2024-03-29 08:35] LABS: Albumin 4.3 g/dL (3.2-4.8)
--- NOTE | 2024-03-29 08:36 | DVHPNRES ---
Progress Note Has the PT tested + for MRSA If YES, has PT been informed?: No Medical Necessity Reason Pt with a Central, PICC or Fol: No Objective vital signs Vital Sign Date Time Temp Pulse Resp B/P (MAP) Pulse Ox O2 Delivery O2 Flow Rate FiO2 03/29/24 07:54 88 20 95 03/29/24 07:49 Nasal Cannula* 4 36 03/29/24 05:00 98.0 119/68 (85) 98.0 Total Intake and Output 03/28/24 03/28/24 03/29/24 15:00 23:00 07:00 Intake Total 740 ml 700 ml 400 ml Output Total 1 ml Balance 740 ml 699 ml 400 ml medications Current Medications Medications Dose Ordered Sig/[place] Route Start Time Stop Time Status Last Admin Dose Admin Aspirin 81 mg DAILY PO 03/27/24 10:00 03/28/24 10:22 81 MG Levalbuterol HCl 0.625 mg Q6HR NEB 03/27/24 00:00 03/29/24 07:49 0.625 MG Ipratropium [place] 0.5 mg Q4HPRN PRN NEB 03/26/24 20:45 03/29/24 07:49 0.5 MG Atorvastatin Calcium 20 mg HS PO 03/26/24 22:00 03/28/24 22:54 20 MG Famotidine 20 mg DAILY IV 03/27/24 10:00 03/28/24 10:22 20 MG Levothyroxine Sodium 25 mcg QAM@0600 PO 03/27/24 06:00 03/29/24 06:02 25 MCG Ondansetron HCl 4 mg Q4HP PRN IV 03/26/24 20:45 Acetaminophen 650 mg Q6HP PRN PO 03/26/24 20:45 03/28/24 20:12 650 MG Nitroglycerin 0.4 mg Q5MINP PRN SL 03/26/24 20:45 Morphine Sulfate 2 mg Q30M PRN IV 03/26/24 20:45 Doxycycline Monohydrate 100 mg Q12HR PO 03/27/24 22:00 03/28/24 22:54 100 MG Ceftriaxone Sodium 50 ml @ 100 mls/hr DAILY@09 IV 03/29/24 09:00 Oseltamivir Phosphate 30 mg Q12HR PO 03/28/24 22:00 04/02/24 21:59 03/28/24 22:54 30 MG Alprazolam 0.5 mg BID PRN PO 03/28/24 14:00 Apixaban 2.5 mg BID PO 03/28/24 22:00 03/28/24 22:55 2.5 MG Citalopram Hydrobromide 20 mg DAILY PO 03/29/24 10:00 Digoxin 0.125 mg DAILY PO 03/29/24 10:00 Docusate Sodium 100 mg DAILY PO 03/29/24 10:00 Gabapentin 300 mg DAILY PO 03/29/24 10:00 Levalbuterol HCl 1.25 mg Q6HR PRN NEB 03/28/24 14:00 Metoclopramide HCl 10 mg BIDAC PO 03/28/24 17:00 03/29/24 06:02 10 MG Montelukast Sodium 10 mg DAILY PO 03/29/24 10:00 Pantoprazole Sodium 40 mg DAILY PO 03/29/24 10:00 Sucralfate 1 gm TID PO 03/28/24 14:00 03/29/24 06:02 1 GM Cholecalciferol 2,000 unit DAILY PO 03/29/24 10:00 Dronedarone 400 mg BID PO 03/28/24 22:00 Spironolactone 50 mg DAILY PO 03/29/24 10:00 Methylprednisolone Sodium Succinate 40 mg DAILY IV 03/29/24 18:00 laboratory and microbiology Laboratory Tests 03/29/24 05:12 Test 03/29/24 05:12 Range/Units Serum Glucose 113 H 74-106 mg/dL My Orders My Orders Orders - BERNARDA LERMA RESIDENT Procedure Category Date Status Time Methylprednisolone PHA 03/29/24 In Process Sod Succ (Solu Medrol 18:00 BERNARDA LERMA RESIDENT Mar 29, 2024 08:36
[2024-03-29] MEDS: cefTRIAXone 1GM/50ML D5W 50 ML IV SCH (10:30)
[2024-03-29] MEDS: GABAPENTIN 300 MG CAP PO SCH (10:30)
[2024-03-29] MEDS: CHOLECALCIFEROL (VITD3) 1,000UNIT=25mCg TAB PO SCH (10:31)
[2024-03-29] MEDS: DIGOXIN 0.125 MG TAB PO SCH (10:31)
[2024-03-29] MEDS: PANTOPRAZOLE 40 MG TAB PO SCH (10:32)
[2024-03-29] MEDS: CITALOPRAM HYDROBR 20 MG TAB PO SCH (10:32)
[2024-03-29] MEDS: MONTELUKAST SODIUM 10 MG TAB PO SCH (10:32)
[2024-03-29] MEDS: SPIRONOLACTONE 25 MG TAB PO SCH (10:33)
[2024-03-29] MEDS: DOCUSATE SOD 100 MG CAP PO SCH (10:33)
[2024-03-29 11:02] LABS: Base Excess 3.3 mmol/L (-2.0-3.0)
[2024-03-29] MEDS ORDERED: DOX100T PO (14:29)
[2024-03-29] MEDS ORDERED: PRED20TA2 PO (14:29)
--- NOTE | 2024-03-29 14:32 | DVHDS2 ---
Discharge Summary Date of Admission Mar 26, 2024 at 20:41 Date of Discharge: Mar 29, 2024 Admitting Diagnosis COPD Exacerbation Labs/Diagnostic Data: Laboratory Results Test 03/29/24 10:55 03/29/24 05:12 03/27/24 02:19 03/26/24 16:34 Blood Gas Specimen Type Arterial Blood Gas Sample Site Left radial Blood Gas Patient Temperature 37.0 Arterial Blood Date Drawn [id number] Arterial Blood pH 7.462 (7.350-7.450) Arterial Blood Partial Pressure CO2 39.0 mmHg (32.0-45.0) Arterial Blood Partial Pressure O2 54.3 mmHg (83.0-108.0) Arterial Blood HCO3 27.2 mmol/L (21.0-28.0) Arterial Blood Oxygen Saturation 88.0 % (94.0-98.0) Arterial Blood Base Excess 3.3 mmol/L (-2.0-3.0) Arterial Blood Oxyhemoglobin 86.4 % (94.0-98.0) Arterial Blood Carboxyhemoglobin 1.5 % (0.5-1.5) Arterial Blood Methemoglobin 0.3 % (0.0-1.5) Everardo Test Yes Blood Gas Total Hemoglobin 14.00 g/dL (12.0-16.0) Blood Gas Modality Room air FiO2 % 21.0 Blood Gas Critical Value Read Back Yes Blood Gas Notified Whom Dr. layla zapien Blood Gas Notified Time [id number] Blood Gas Notified By [facility] lopez White Blood Count 8.3 10^3/uL (4.4-10.8) Red Blood Count 4.46 10^6/uL (4.0-5.20) Hemoglobin 13.8 g/dL (12.2-16.2) Hematocrit 41.6 % (36.0-46.0) Mean Corpuscular Volume 93.2 fL (80.0-100.0) Mean Corpuscular Hemoglobin 30.9 pg (28.0-32.0) Mean Corpuscular Hemoglobin Concent 33.1 g/dL (32.0-36.0) Red Cell Distribution Width 13.5 % (11.8-14.3) Platelet Count 259 10^3/uL (140-450) Mean Platelet Volume 7.2 fL (6.9-10.8) Neutrophils (%) (Auto) 87.4 % (37.0-80.0) Lymphocytes (%) (Auto) 7.9 % (10.0-50.0) Monocytes (%) (Auto) 4.5 % (0.0-12.0) Eosinophils (%) (Auto) 0.0 % (0.0-7.0) Basophils (%) (Auto) 0.2 % (0.0-2.0) Neutrophils # (Auto) 7.2 10 ^3/uL (1.6-8.6) Lymphocytes # (Auto) 0.7 10 ^3/uL (0.4-5.4) Monocytes # (Auto) 0.4 10 ^3/uL (0-1.3) Eosinophils # (Auto) 0 10 ^3/uL (0-0.8) Basophils # (Auto) 0 10 ^3/uL (0-0.2) Nucleated Red Blood Cells 0.0 % Sodium Level 140 mmol/L (136-145) Potassium Level 3.9 mmol/L (3.5-5.1) Chloride Level 104 mmol/L (98-107) Carbon Dioxide Level 28 mmol/L (20-31) Anion Gap 8 (5-15) Blood Urea Nitrogen 12 mg/dL (9-23) Creatinine 0.55 mg/dL (0.550-1.02) Glomerular Filtration Rate Calc 91 mL/min (>90) BUN/Creatinine Ratio 21.8 (10.0-20.0) Serum Glucose 113 mg/dL (74-106) Calcium Level 9.4 mg/dL (8.7-10.4) Total Bilirubin 0.2 mg/dL (0.2-1.0) Aspartate Amino Transferase (AST) 18 U/L (13-40) Alanine Aminotransferase (ALT) 19 U/L (7-40) Alkaline Phosphatase 76 U/L (46-116) Total Protein 6.2 g/dL (5.7-8.2) Albumin 4.3 g/dL (3.2-4.8) Influenza Type A Antigen Positive (Negative) Influenza Type B Antigen Negative (Negative) SARS-CoV-2 Antigen (Rapid) Negative (NEGATIVE) Lactic Acid Level 0.8 mmol/L (0.4-2.0) Magnesium Level 1.8 mg/dL (1.6-2.6) Troponin I High Sensitivity < 3 ng/L (</=34) Test 03/26/24 15:24 03/26/24 00:00 B-Type Natriuretic Peptide 45.86 pg/mL (0-100) Lipase 41 U/L (12-53) Urine Color Dark-yellow (Yellow) Urine Clarity Clear (Clear) Urine pH 6.0 (5.0-9.0) Urine Specific [place] 1.019 (1.001-1.035) Urine Protein Negative (Negative) Urine Ketones 1+ (Negative) Urine Blood Negative /uL (Negative) Urine Nitrite Negative (Negative) Urine Bilirubin Negative (Negative) Urine Urobilinogen Normal mg/dL (Negative) Urine Leukocyte Esterase Negative /uL (Negative) Urine RBC 4 /hpf (0 - 4) Urine WBC <1 /hpf (0 - 5) Urine Squamous Epithelial Cells Few /hpf (<5) Urine Bacteria None seen /hpf (None Seen) Urine Glucose Normal mg/dL (Normal) Other Laboratory Tests 03/29/24 05:12 Brief Hx & Hospital Course: An 84-year-old woman with multiple past medical history including COPD, CHF, hypertension, MT, and hyperlipidemia who presented to ED today with complaint of shortness of breath. Patient reports symptoms progressively got worse with chest pain, increased work of breathing, that prompted this visit. Workup in ED shows WBC 5.8, platelets 225, sodium 135, potassium 4.2, BUN 8, creatinine 0.81, GFR 72, glucose 109, calcium 10.5, BNP 45.56, troponin 3. Blood pressure 121/73, heart rate 98, temperature 97.9 F, O2 saturation 97% on simple mask. Chest x- ray revealing eventration of the right hemidiaphragm with bilateral lower lung zone and right mid lung zone linear atelectasis/scarring. Patient was treated with Solumedrol and Doxycycline. Patient reports she is feeling better, back at her baseline, wishes to be discharged home on 3-4L nasal cannula home oxygen. Condition at Discharge: Poor Final Diagnosis/Problems List COPD Exacerbation Acute on Chronic Resp Failure Discharge Disposition: Home Discharge Instruct/Medications Diet: Regular Activity: Light activity Follow Up/Referral: [facility] in 1 week Medications: Prednisone and Doxy Discharge Statement: "Patient was advised to return to the ER or call 911 if any headaches, dizziness, shortness of breath, chest pain, abdominal pain, bleeding, fevers, or worsening of medical condition. Patient was counseled about treatment plan, medications, possible side effects, patientverbalized understanding. All questions were answered to the best of my ability. This discharge took greater then 30 minutes in planning, reviewing documentation, counseling the patient, and discussing with other team members." ASSESSMENT ASSESSMENT Assessment Date of Service: Mar 29, 2024 Billing Provider: RAHAT MOORE MD Common Visit Codes: [id number]/[id number] DISCH DAY >30min RAHAT MOORE MD Mar 29, 2024 14:32
[2024-03-29] MEDS: FUROSEMIDE 40 MG/4 ML VIAL IV ONE (16:04)
[2024-03-29] MEDS: methylPREDNISolone SOD SUCC 40 MG/ML VL IV SCH (18:23)
== END 2024-03-29 21:15 | disposition home or self-care (01) | DRG 193 ==
LOC: EDBD 15:06 → ER 15:06 → TELE 20:41 → TELE-CENTR 03-27 00:56
PROVIDERS: ADMIT Nurse Practitioner Family; ATTEND Internal Medicine
DX: J10.1 Influenza due to other identified influenza virus with other respiratory manifestations (principal); J96.21 Acute and chronic respiratory failure with hypoxia; J44.1 Chronic obstructive pulmonary disease with (acute) exacerbation; J98.11 Atelectasis; J43.9 Emphysema, unspecified; Z20.822 Contact with and (suspected) exposure to COVID-19; E78.5 Hyperlipidemia, unspecified; I11.0 Hypertensive heart disease with heart failure; I50.9 Heart failure, unspecified; I25.10 Atherosclerotic heart disease of native coronary artery without angina pectoris; F41.9 Anxiety disorder, unspecified; F32.A Depression, unspecified; E55.9 Vitamin D deficiency, unspecified; K25.9 Gastric ulcer, unspecified as acute or chronic, without hemorrhage or perforation; K21.9 Gastro-esophageal reflux disease without esophagitis; E03.9 Hypothyroidism, unspecified; G89.29 Other chronic pain; M19.09 Primary osteoarthritis, other specified site; I35.1 Nonrheumatic aortic (valve) insufficiency; J98.4 Other disorders of lung; Z82.49 Family history of ischemic heart disease and other diseases of the circulatory system; Z99.81 Dependence on supplemental oxygen; Z88.5 Allergy status to narcotic agent; Z88.1 Allergy status to other antibiotic agents; Z88.0 Allergy status to penicillin; Z95.1 Presence of aortocoronary bypass graft
CPT/HCPCS: 36415; 36600; 71045; 80053; 81001; 82805; 83605; 83690; 83735; 83880; 84484; 85025; 87426; 87804; 93005; 94640; 97163; G0378; G9035; J1100; J3490; J7060